=== PATIENT | male | born 1965 | race Caucasian/White ===

== ENCOUNTER 2024-05-20 13:38 | Inpatient (IN) ==
[2024-05-20] MEDS: SODIUM CHLORIDE 0.9% 500 ML IV STA (14:02)
[2024-05-20] MEDS: ONDANSETRON INJ 2 MG/ML 2 ML VIAL IV STA (14:02)
[2024-05-20 14:21] LABS: Basophils # (auto) 0.03 K/uL (0.00-0.20); Basophils % (auto) 0.2 %; Eosinophils # (auto) 0.12 K/uL (0.00-0.50); Eosinophils % (auto) 0.9 %; Hematocrit (blood only) 42.3 % (42.0-52.0); Hemoglobin 15.4 g/dl (14.0-18.0); Immature Granulocytes # (auto) 0.05 K/uL (0.01-0.20); Immature Granulocytes % (auto) 0.4 %; Lymphocytes # (auto) 1.27 K/uL (1.20-3.40); Lymphocytes % (auto) 9.2 %; Mean Corpuscular Hgb Conc 36.4 g/dL (32.0-36.0); Mean Corpuscular Volume 87.9 fL (80.0-100.0); Mean Platelet Volume 9.6 fL (9.4-12.4); Monocytes # (auto) 0.92 K/uL (0.11-0.59); Monocytes % (auto) 6.6 %; Neutrophils # (auto) 11.45 K/uL (1.40-6.50); Neutrophils % (auto) 82.7 %; Platelet Count 282 K/uL (130-400); RDW Coefficient of Variation 12.7 % (11.5-14.5); RDW Standard Deviation 40.6 fL (36.4-46.3); Red Blood Count 4.81 M/uL (4.70-6.10); White Blood Count 13.84 K/ul (4.8-10.8)
--- NOTE | 2024-05-20 14:27 | History & Physical Report ---
Date of Service May 20, 2024 Assessment & Plan (1) Cholecystitis: (2) Epigastric abdominal pain: (3) Non-alcoholic fatty liver disease: (4) GERD (gastroesophageal reflux disease): (5) Elevated liver enzymes: (6) Hypertension: (7) Dyslipidemia: Plan: Acute cholecystitis Abdominal pain SIRS with tachycardia -Admit to [facility] tele -General april has already seen the patient earlier this morning but the patient refused at that point in time to be admitted, stated that he did not want to have surgical procedure today. Upon return to the ER he is agreeable to surgery and is scheduled to go to the OR tomorrow with GEN chen, Dr. Perry -N.p.o. except sips and chips -Continue LR at 125 x 2 more bags -WBC of 13 K increased from 9 even this morning, follow response -Follow blood cultures, continue IV Zosyn, pt had taken 1 dose of Augmentin earlier today. -Pain control with Tylenol, was given Toradol, will add on low-dose Dilaudid for him. HTN HLD - Continue home meds including lisinopril, losartan -Will add on IV labetalol as needed with parameters TORIBIO - Chronic stable, LFTs are not elevated today, Tbili 1.0 Emphysema RICHELLE on CPAP hx of tobacco smoking - quit 20 years ago - Continue combivent, CPAP HS - Will need to reschedule appt with obed as outpatient DVT ppx: teds, scds, no chemical anticoagulation in the setting of surgical procedure Lines: 2 PIV FEN/GI: N.p.o., LR at 125 CODE: Full code Dispo: From home, likely to remain in the hospital x 1-2 days A total of 78 minutes were spent with greater than 50% of that time face to face with the patient, personally reviewing all current laboratories, imaging studies, past medication reconciliation, outpatient chart review, and discussion with specialists to collaborate care for the patient with attending. Please see attending documentation for corrections and/or additions. History of Present Illness Chief Complaint: Abdominal pain Primary Care Provider: Frankie Ayala Patient is a 58 year old male with PMHx of Nonalcoholic fatty liver disease, lumbar radiculopathy, GERD, obesity, elevated LFTs, emphysema who initially presented to the ER this morning, was told that he had acute cholecystitis, and with pain medication on board felt improved and refused to stay. He is back to the ER within 2 hours with c/o N/V, abdominal pain that began early this AM around 0200. Patient described the pain as sharp, and intense he thought he had food poisoning as he went out to dinner yesterday evening and ate a steak, mashed potatoes and green beans. He denies diarrhea, fever, chills, SOB, CP, and no prior abdominal surgeries. Pt tried to eat again this morning but had worsening abdominal pain, nausea and vomited. Denies any blood in emesis. He states that he is scheduled to have a stress test tomorrow at [facility] for a new diagnosis of emphysema on prior ct that also showed mild coronary calcification. Ct scan was obtained and is reading acute cholecystitis with cholelithiasis and small stones in the cystic duct. Report does not read obstructing stone in cystic duct or in the CBD. General surgery has seen the pt earlier this morning. Pt has taken morning meds today. He vomited, so is unsure if they absorbed. Family Hx: Reports he cannot take succinylcholine with anesthesia because his brother had a bad reaction/anaphylaxis and was told not to take it. Social Hx: quit smoking tobacco 20 years ago, drinks 2-3 beers per week on weekend. No ilicit drug use. Surgical Hx: Arthroscopic surgery knees bilaterally, MCL repair Allergies Allergy/AdvReac Type Severity Reaction Status Date / Time lisinopril Allergy Cough Verified 05/20/24 15:28 succinylcholine AdvReac It caused Verified 05/20/24 15:32 his brother to stop breathing Home Medications Medication Instructions Recorded Confirmed Type atorvastatin 20 mg tablet 20 mg PO DAILY 09/22/21 05/20/24 History losartan 25 mg tablet 25 mg PO DAILY 09/22/21 05/20/24 History duloxetine 60 mg capsule,delayed 60 mg PO DAILY 10/01/21 05/20/24 History release (Cymbalta) esomeprazole magnesium 40 mg 40 mg PO DAILY 03/05/22 05/20/24 History capsule,delayed release (Nexium) lidocaine 5 % topical patch 1 patch topical DAILY PRN Pain 08/17/22 05/20/24 History hydrocodone 7.5 mg-acetaminophen 1 tab PO BID PRN Severe Pain 09/30/23 05/20/24 History 325 mg tablet (Scale Score 7-10) acetaminophen 500 mg tablet 1,000 mg PO TID PRN Pain 05/20/24 05/20/24 History (Tylenol Extra Strength) amoxicillin 875 mg-potassium 1 tab PO Q12H 10 days #20 tabs 05/20/24 05/20/24 Rx clavulanate 125 mg tablet ipratropium 20 mcg-albuterol 100 1 puff inhalation BID 05/20/24 05/20/24 History mcg/actuation mist for inhalation (Combivent Respimat) tamsulosin 0.4 mg capsule 0.4 mg PO DAILY 05/20/24 05/20/24 History Past Med/Surg History Problem List (Updated 05/20/24 @ 15:06 by Arden Ellis MD) Acute cholecystitis (Acute) Epigastric abdominal pain (Acute) Abdominal pain (Acute) Cholecystitis (Acute) Sacroiliitis Lumbar facet joint syndrome Lumbar radiculopathy Cervical spine pain Bilateral elbow joint pain Non-alcoholic fatty liver disease GERD (gastroesophageal reflux disease) Calculus of gallbladder Elevated liver enzymes Diaphoresis Dyspnea on exertion Dyslipidemia Hypertension Sensorineural hearing loss of both ears Medical History Sleep apnea Fatty liver Chronic pain Anxiety Left ankle pain DJD (degenerative joint disease) Surgical History S/P MCL repair Family History Grandfather (Maternal) Stroke Hypertension Mother Diabetes Hypertension Grandfather (Paternal) Hypertension Grandmother (Maternal) Hypertension Grandmother (Paternal) Hypertension Father Hypertension Denies family history of Heart disease Cancer Social History Smoking Status: Former smoker Tobacco Type: Cigarettes Hx Alcohol Use: Yes Alcohol type: beer Alcohol Intake Frequency: 2-3 x/Week Preferred Language: Zimbabwean Completion Engineer Required: No Beliefs That Will Affect Care: None marital status: marital status details: [employer] current occupational status: employed Feels Safe at Home: Yes Review of Systems Review of Systems: Constitutional: No fever, sweats or chills Eyes: No diplopia, no worsening or blurred vision ENT: normal hearing, no trouble swallowing Respiratory: No cough, sputum, dyspnea at rest or on exertion Cardiovascular: No chest pain, tightness or palpitations Abdomen: + Pain in RUQ, + nausea, +vomiting, no diarrhea or constipation Musculoskeletal: No joint pain, calf pain, swelling Neurologic: No weakness, numbness/tingling, or balance problems Psychiatric: No anxiety or depression Skin: No rash or itch Physical Exam Physical Exam: General: awake, alert, no apparent distress Head: Normocephalic, atraumatic ENT: PERRL, EOMI, no pharyngeal exudate, mucous membranes moist Chest: Clear to auscultation, on room air, no adventitious breath sounds Cardiac: Regular rate and rhythm, no murmur, no JVD, normal peripheral pulses, good capillary refill Abdominal: NABS x 4 quadrants, soft, nondistended, + tenderness in RUQ, no rebound or guarding Extremities: Normal inspection, no peripheral edema or erythema, calfs nontender to palpation Psych: Normal mood and affect Neuro: AAO x 3, strength intact bilaterally and rated 5/5, no motor deficits, speech is clear, no peripheral sensory deficits Results & Data Results & Data Vital Signs (Past 12 Hours) Vital Signs Temp Pulse Resp BP Pulse Ox O2 Del Method 05/20/24 13:43 36.4 C L 91 H 19 185/91 H 100 Room Air Laboratory Results 05/20/24 14:07 WBC 13.84 H RBC 4.81 Hgb 15.4 Hct 42.3 MCV 87.9 MCH 32.0 MCHC 36.4 H RDW Std Deviation 40.6 RDW Coeff of Isidra 12.7 Plt Count 282 MPV 9.6 Immature Gran % (Auto) 0.4 Neut % (Auto) 82.7 Lymph % (Auto) 9.2 [place] % (Auto) 6.6 Eos % (Auto) 0.9 Baso % (Auto) 0.2 Neut # (Auto) 11.45 H Lymph # (Auto) 1.27 [place] # (Auto) 0.92 H Eos # (Auto) 0.12 Baso # (Auto) 0.03 Immature Gran # (Auto) 0.05 Code Status & VTE Plan Code Status Full code - discussed with pt at bedside Supervising Physician Co-Signing Physician Notes I have seen and discussed the case with the collaborating advanced practitioner. I agree with the above H&P. I have reviewed and confirmed the patients medical history, the findings on physical examination, and the patients diagnosis and treatment plan with Charlie AVINA and agree with the information documented. In short, Mr. Colon is a 58 year old gentleman with history of Nonalcoholic fatty liver disease, lumbar radiculopathy, GERD, obesity, elevated LFTs, emphysema who is admitted for acute cholecystitis. GENERAL APPEARANCE: AxOx4,uncomfortable gentleman. HEENT: NC, AT. MMM. EOMI, clear conjunctiva, oropharynx clear. NECK: Supple without lymphadenopathy. No stiffness or restricted ROM. HEART: Normal rate and regular rhythm, normal S1/S1, no m/r/g LUNGS: CTAB, moving air well. No crackles or wheezes are heard. ABDOMEN: tenderness noted in RUQ/epigastrium EXTREMITIES: Without cyanosis, clubbing or edema. NEUROLOGICAL: Grossly nonfocal. Alert and oriented, moving all 4 extremities. CN not formally tested but appear grossly intact. Skin: Warm and dry without any rash. : #Acute cholecystitis -pain management trend LFTS Zosyn Surgery on consult NPO midnight RCRI 1 for intraperitoneal procedure -No hx of ASCVD, CHF, AMI/ICM, elevated Cr, or insulin use rest of plan as above I spent a total of 35 minutes coordinating, documenting, and providing care for this patient excluding time spent in the performance of separately billed services. All of the aforementioned completed outside of collaborating with the assigned advanced practitioner for a full treatment plan. I have reviewed the advanced practitioner's documentation, and I agree with, and take responsibility for the plan of care
[2024-05-20 14:36] LABS: Albumin Globulin Ratio 1.8 (0.9-2); Albumin Level 4.3 gm/dl (3.4-5.0); BUN Creatinine Ratio 13.6 (10-20); Calcium 9.2 mg/dl (8.6-10.3); Creatinine Clr Calc Pharmacy 98.3 ml/min; Est GFR (African American) 91.7 ml/min; Est GFR (Non-African American) 79.1 ml/min; Globulin 2.4 gm/dl (2.5-4.0); Potassium 3.6 mmol/L (3.5-5.1); Total Protein 6.7 gm/dl (6.0-8.3)
[2024-05-20] MEDS ORDERED: LABETALOL HCL IV 5 MG/ML 20ML IV PRN (14:39)
[2024-05-20] MEDS ORDERED: HYDROmorphone INJ 0.5 MG/0.5 ML SYR IV PRN (14:39)
--- NOTE | 2024-05-20 14:40 | Communication Note ---
Date of Service: May 20, 2024 Contacted by ER physician, patient represented to ER with c/o ongoing N/V. Repeat labs show elevation in WBC Recommending admit to medicine NPO at [place] IV Fluids for hydration IV antiemetic PRN IV antibiotics IV analgesic PRN Patient will be added to the OR schedule tomorrow for a Robotic / Laparoscopic Cholecystectomy with On-call surgeon Dr. Perry timing of procedure is pending OR availability.
--- NOTE | 2024-05-20 15:06 | Emergency Department Note ---
Impression & Plan Acute cholecystitis ED Provider Note NAME: RANCHO DOMINGUEZ AGE: 58 SEX: M : 1965 ARRIVES VIA: Walk-In INFORMANT: Patient, ED PROVIDER(S): Arden Ellis MD CHIEF COMPLAINT: Acute cholecystitis HPI: This is a 58-year-old male seen a few hours ago for acute cholecystitis. Patient had workup done by myself earlier this morning with CT imaging of acute cholecystitis. Patient had pain relief after Toradol and requested to be discharged home instead of being admitted for cholecystectomy. He is eval by surgery later he notes that since he left he is unable to eat and has persistent nausea vomiting and right upper quadrant abdominal pain now. ROS: See above HPI for pertinent positives & negatives. A total of 10 systems reviewed and were otherwise negative. PHYSICAL EXAMINATION: General: resting comfortably in no acute distress Head: Normocephalic and atraumatic Eyes: Normal inspection, extraocular muscles intact Ear, nose, throat: Normal external exam Neck: Normal range of motion Respiratory: lungs clear to auscultation bilaterally Cardiovascular: Regular rate/rhythm, no murmur GI: Positive Iqbal sign, no rebound, guarding Extremities: nontender, moves all extremities Neuro: The patient awake and alert, appropriately conversive, no focal deficits, symmetric faces Skin: Warm, dry, and intact MEDICAL DECISION MAKING: This is a 58-year-old male presenting for acute cholecystitis. Patient had extensive workup this morning including blood work, imaging which shows acute cholecystitis. His exam is still consistent with acute cholecystitis. -Repeat blood work reveals now increasing white count. -Otherwise LFT/lipase within normal limits -Will admit to the hospital service, discussed with ZUNILDA Connolly for admission Differential diagnosis: Acute cholecystitis, pancreatitis, hepatitis Past Med/Surg History Problem List (Updated 05/20/24 @ 15:06 by Arden Elils MD) Acute cholecystitis (Acute) Epigastric abdominal pain (Acute) Abdominal pain (Acute) Cholecystitis (Acute) Sacroiliitis Lumbar facet joint syndrome Lumbar radiculopathy Cervical spine pain Bilateral elbow joint pain Non-alcoholic fatty liver disease GERD (gastroesophageal reflux disease) Calculus of gallbladder Elevated liver enzymes Diaphoresis Dyspnea on exertion Dyslipidemia Hypertension Sensorineural hearing loss of both ears Medical History Sleep apnea Fatty liver Chronic pain Anxiety Left ankle pain DJD (degenerative joint disease) Surgical History S/P MCL repair Family History Grandfather (Maternal) Stroke Hypertension Mother Diabetes Hypertension Grandfather (Paternal) Hypertension Grandmother (Maternal) Hypertension Grandmother (Paternal) Hypertension Father Hypertension Denies family history of Heart disease Cancer Social History Smoking Status: Former smoker Tobacco Type: Cigarettes Hx Alcohol Use: Yes Alcohol type: beer Alcohol Intake Frequency: 2-3 x/Week Preferred Language: Montserratian Care Support Representative Required: No Beliefs That Will Affect Care: None marital status: marital status details: [employer] current occupational status: employed Feels Safe at Home: Yes Allergies Allergies Allergy/AdvReac Type Severity Reaction Status Date / Time lisinopril Allergy Cough Verified 03/09/24 10:10 Home Meds Home Medications Medication Instructions Recorded Confirmed atorvastatin 20 mg tablet 20 mg PO DAILY 09/22/21 05/20/24 cetirizine 10 mg tablet (Zyrtec) 10 mg PO DAILY 09/22/21 03/09/24 losartan 25 mg tablet 25 mg PO DAILY 09/22/21 05/20/24 duloxetine 60 mg capsule,delayed 60 mg PO DAILY 10/01/21 05/20/24 release (Cymbalta) esomeprazole magnesium 40 mg 40 mg PO DAILY 03/05/22 05/20/24 capsule,delayed release (Nexium) lidocaine 5 % topical patch 1 patch topical DAILY 08/17/22 03/09/24 hydrocodone 7.5 mg-acetaminophen 1 tab PO BID PRN Severe Pain 09/30/23 05/20/24 325 mg tablet (Scale Score 7-10) ipratropium 20 mcg-albuterol 100 1 puff inhalation BID 05/20/24 05/20/24 mcg/actuation mist for inhalation (Combivent Respimat) tamsulosin 0.4 mg capsule 0.4 mg PO DAILY 05/20/24 05/20/24 Previous Rx's Medication Instructions Recorded amoxicillin 875 mg-potassium 1 tab PO Q12H 10 days #20 tabs 05/20/24 clavulanate 125 mg tablet Results & Data (ED) Vital Signs Vital Signs - 24 hr 05/20/24 13:43 Temperature 36.4 C L Temperature Source Temporal Artery Scan Pulse Rate 91 H Respiratory Rate 19 Blood Pressure 185/91 H Blood Pressure Mean 122 Pulse Oximetry 100 Oxygen Delivery Method Room Air Sepsis Recent Fever Within 48 Hours No Sepsis New/Unexplained Change in Mental Status N/A Sepsis Action Taken by Nursing No Action Required Laboratory Data 05/20/24 14:07 05/20/24 14:07 Lab Results 05/20/24 Range/Units 14:07 WBC 13.84 H (4.8-10.8) K/ul RBC 4.81 (4.70-6.10) M/uL Hgb 15.4 (14.0-18.0) g/dl Hct 42.3 (42.0-52.0) % MCV 87.9 (80.0-100.0) fL MCH 32.0 (25.0-34.0) pg MCHC 36.4 H (32.0-36.0) g/dL RDW Std Deviation 40.6 (36.4-46.3) fL RDW Coeff of Isidra 12.7 (11.5-14.5) % Plt Count 282 (130-400) K/uL MPV 9.6 (9.4-12.4) fL Immature Gran % (Auto) 0.4 % Neut % (Auto) 82.7 % Lymph % (Auto) 9.2 % [place] % (Auto) 6.6 % Eos % (Auto) 0.9 % Baso % (Auto) 0.2 % Neut # (Auto) 11.45 H (1.40-6.50) K/uL Lymph # (Auto) 1.27 (1.20-3.40) K/uL [place] # (Auto) 0.92 H (0.11-0.59) K/uL Eos # (Auto) 0.12 (0.00-0.50) K/uL Baso # (Auto) 0.03 (0.00-0.20) K/uL Immature Gran # (Auto) 0.05 (0.01-0.20) K/uL Sodium 137 (136-145) mmol/L Potassium 3.6 (3.5-5.1) mmol/L Chloride 104 (98-107) mmol/L Carbon Dioxide 27 (21-32) mmol/L Anion Gap 6 (3-11) BUN 14 (6-23) mg/dl Creatinine 1.03 (0.6-1.4) mg/dl Est Cr Clr Drug Dosing 98.3 ml/min Est GFR ( Amer) 91.7 ml/min Est GFR (Non-Af Amer) 79.1 ml/min BUN/Creatinine Ratio 13.6 (10-20) Glucose 144 H (70-99(Fasting)) mg/dl Calcium 9.2 (8.6-10.3) mg/dl Total Bilirubin 1.0 (0.2-1.0) mg/dl AST 28 (13-39) U/L ALT 47 (7-52) U/L Alkaline Phosphatase 61 (34-104) U/L Total Protein 6.7 (6.0-8.3) gm/dl Albumin 4.3 (3.4-5.0) gm/dl Globulin 2.4 L (2.5-4.0) gm/dl Albumin/Globulin Ratio 1.8 (0.9-2) Lipase 27 (11-82) U/L Administered Medications Discontinued Medications Sodium Chloride (Nss) 500 mls @ 999 mls/hr IV .Q31M STA Stop: 05/20/24 14:15 Last Admin: 05/20/24 14:02 Dose: 999 mls/hr Documented By: LIANA Ondansetron HCl (Ondansetron Inj 2 Mg/Ml 2 Ml Vial) 4 mg IV NOW STA Stop: 05/20/24 13:46 Last Admin: 05/20/24 14:02 Dose: 4 mg Documented By: LIANA Discharge Plan Visit Data Chief Complaint: Vomiting Stated Complaint: VOMITING, DIZZY ED Provider: Arden Ellis Discharge Problem: Acute cholecystitis Forms Stand Alone Forms: My [facility] Prescriptions Prescriptions: No Action hydrocodone-acetaminophen 7.5-325 mg tablet 1 tab PO BID PRN (Reason: Severe Pain (Scale Score 7-10)) lidocaine 5 % adhesive patch,medicated 1 patch topical DAILY Rx Instructions: leave on most painful area for up to 12 hrs esomeprazole magnesium [Nexium] 40 mg capsule,delayed release(DR/EC) 40 mg PO DAILY losartan 25 mg tablet 25 mg PO DAILY atorvastatin 20 mg tablet 20 mg PO DAILY cetirizine [Zyrtec] 10 mg tablet 10 mg PO DAILY duloxetine [Cymbalta] 60 mg capsule,delayed release(DR/EC) 60 mg PO DAILY amoxicillin-pot clavulanate 875-125 mg tablet 1 tab PO Q12H 10 Days Qty: 20 0RF tamsulosin 0.4 mg capsule 0.4 mg PO DAILY Combivent Respimat 20-100 mcg/actuation mist 1 puff INHALATION BID Referrals Referrals: Frankie Ayala CRNP [Primary Care Provider] -
[2024-05-20] MEDS: KETOROLAC TROMETHAMINE 15 MG/ML VIAL IV ONE (15:26)
[2024-05-20] MEDS: PIPER/TAZO 4.5g in D5W MINI-B 100 ML IV ONE (15:27)
[2024-05-20] MEDS ORDERED: ONDANSETRON INJ 2 MG/ML 2 ML VIAL IV PRN (17:27)
[2024-05-20] MEDS: LACTATED RINGER'S 1,000 ML IV SCH (17:44)
[2024-05-20] MEDS: HYDROCODONE/ACETAMINOPHEN 7.5/325MG TAB PO PRN (18:06)
[2024-05-20] MEDS: LIDOCAINE 5% 1 PATCH TD SCH (18:17)
[2024-05-20] MEDS: PIPERACILLIN/TAZOBACTAM 4.5 GM in DEXTROSE 5% MINI-B 100 ML IV SCH (20:54)
[2024-05-20] MEDS ORDERED: IPRATROPIUM BROMIDE/ALBUTEROL respimat INH INH SCH (21:00)
[2024-05-20] MEDS: Ipratropium HFA Inhaler (Combivent Respimat P&T Subs) INH SCH (23:06)
[2024-05-20] MEDS: Albuterol HFA 8 GM Inhaler (Combivent Respimat P&T Subs) INH SCH (23:07)
[2024-05-20] MEDS: ACETAMINOPHEN 325 MG TAB PO PRN (23:21)
[2024-05-20 23:44] LABS: Appearance Urine Clear (Clear); Bilirubin Urine Negative (Negative); Blood Urine Negative (Negative); Color Urine Yellow; Glucose Urine UA Negative (Negative); Ketones Urine Negative (Negative); Leukocyte Esterase Urine Negative (Negative); Nitrite Urine Negative (Negative); Protein Urine Negative (Negative); Specific Gravity Urine 1.025 (1.000-1.030); Urobilinogen Urine Negative (Negative); pH Urine 6.5 (4.5-7.5)
[2024-05-21 07:38] LABS: Estimated Average Glucose 134 mg/dl; Hemoglobin A1C 6.3 % (4.5-5.6)
[2024-05-21 07:56] LABS: Albumin Globulin Ratio 1.8 (0.9-2); Albumin Level 3.7 gm/dl (3.4-5.0); BUN Creatinine Ratio 10.5 (10-20); Bilirubin,Total 3.1 mg/dl (0.2-1.0); Calcium 8.5 mg/dl (8.6-10.3); Chol HDL Ratio 2.4 (0-5); Creatinine Clr Calc Pharmacy 76.3 ml/min; Est GFR (African American) 67.3 ml/min; Est GFR (Non-African American) 58.1 ml/min; Globulin 2.1 gm/dl (2.5-4.0); Hematocrit (blood only) 39.9 % (42.0-52.0); Hemoglobin 13.9 g/dl (14.0-18.0); Mean Corpuscular Hemoglobin 31.7 pg (25.0-34.0); Mean Corpuscular Hgb Conc 34.8 g/dL (32.0-36.0); Mean Corpuscular Volume 91.1 fL (80.0-100.0); Mean Platelet Volume 9.6 fL (9.4-12.4); Platelet Count 228 K/uL (130-400); Potassium 3.6 mmol/L (3.5-5.1); RDW Coefficient of Variation 12.8 % (11.5-14.5); RDW Standard Deviation 42.4 fL (36.4-46.3); Red Blood Count 4.38 M/uL (4.70-6.10); Total Protein 5.8 gm/dl (6.0-8.3)
--- NOTE | 2024-05-21 07:57 | Ultrasound Report ---
ULTRASOUND RIGHT UPPER QUADRANT ABDOMEN CLINICAL HISTORY: Acute cholecystitis. COMPARISON STUDY: Abdominal CT dated 05/20/2024 TECHNIQUE: Real-time, grayscale, and color flow sonography of the right upper quadrant of the abdomen was performed. Images are reviewed in the transverse and longitudinal planes. FINDINGS: Liver: The liver is top normal in size and demonstrates heterogeneously increased echotexture indicat ing steatosis. There is no intrahepatic biliary ductal dilatation. The main portal vein is patent. Gallbladder: The gallbladder is distended and filled with gallstones and sludge. The gallbladder wall is mildly thickened measuring up to 4 mm. There is trace pericholecystic fluid. A sonographic Iqbal 's sign is reportedly present. The common bile duct measures up to 0.5 cm in diameter. Pancreas: Not visualized due to overlying bowel gas. Right kidney: Survey images of the right kidney demonstrate normal size and echotexture. There is no hydronephrosis. Ascites: None. IMPRESSION: 1. Cholelithiasis with acute cholecystitis. 2. There is no intra or extrahepatic biliary ductal dilatation. 3. Hepatic steatosis. ACT 112: Negative or not required by law. Electronically signed by: Pablo Yoo M.D. 05/21/2024 7:55 AM
--- NOTE | 2024-05-21 09:19 | Anesthesiology Consultation ---
Date of Service May 21, 2024 Assessment & Plan Chart Review Chart Review: Acceptable Risk for Surgery and Patient NOT seen in Pre Admission Testing Consults Requested none ASA ASA3 Proposed Anesthesia Anesthesia Type: General History Surgery Operation Date: 05/21/24 07:00 Proposed Procedures p Robotic Laparoscopic Cholecystectomy - Rashid Perry DO, FACS Height/Weight Height: 6 ft Weight: 109 kg Allergies Allergy/AdvReac Type Severity Reaction Status Date / Time lisinopril Allergy Cough Verified 05/20/24 15:28 succinylcholine AdvReac It caused Verified 05/20/24 15:32 his brother to stop breathing Medications Home Medications Medication Instructions Recorded Confirmed Last Taken atorvastatin 20 mg tablet 20 mg PO DAILY 09/22/21 05/20/24 05/20/24 losartan 25 mg tablet 25 mg PO DAILY 09/22/21 05/20/24 05/20/24 duloxetine 60 mg capsule,delayed 60 mg PO DAILY 10/01/21 05/20/24 05/20/24 release (Cymbalta) esomeprazole magnesium 40 mg 40 mg PO DAILY 03/05/22 05/20/24 05/20/24 capsule,delayed release (Nexium) lidocaine 5 % topical patch 1 patch topical DAILY PRN Pain 08/17/22 05/20/24 Unknown hydrocodone 7.5 mg-acetaminophen 1 tab PO BID PRN Severe Pain 09/30/23 05/20/24 05/20/24 325 mg tablet (Scale Score 7-10) acetaminophen 500 mg tablet 1,000 mg PO TID PRN Pain 05/20/24 05/20/24 Unknown (Tylenol Extra Strength) amoxicillin 875 mg-potassium 1 tab PO Q12H 10 days #20 tabs 05/20/24 05/20/24 05/20/24 clavulanate 125 mg tablet ipratropium 20 mcg-albuterol 100 1 puff inhalation BID 05/20/24 05/20/24 05/20/24 mcg/actuation mist for inhalation (Combivent Respimat) tamsulosin 0.4 mg capsule 0.4 mg PO DAILY 05/20/24 05/20/24 05/20/24 Active Medications Generic Name Dose Route Start Last Admin Trade Name Freq PRN Reason Stop Dose Admin Acetaminophen 650 mg 05/20/24 17:27 05/21/24 07:08 Acetaminophen 325 Mg Tab PO 06/19/24 17:26 650 mg Q4H PRN Administration Moderate Pain (Scale 4, 5, 6) Hydrocodone Bitart/Acetaminophen 1 tab 05/20/24 17:27 05/20/24 18:06 Hydrocodone/Acetaminophen 7.5/325mg Tab PO 06/03/24 17:26 1 tab BID PRN Administration Severe Pain (Scale Score 7-10) Albuterol 1 puffs 05/20/24 19:00 05/21/24 07:30 Albuterol Hfa 8 Gm Inhaler (Combivent Respimat P&T Subs) INH 06/19/24 18:59 1 puffs BIDR LAURA Administration Protocol Piperacillin Sod/Tazobactam 100 mls @ 25 mls/hr 05/20/24 20:00 05/21/24 03:56 Sod 4.5 gm/ Dextrose IV 05/30/24 19:59 25 mls/hr Q8H LAURA Administration Protocol Lactated Ringer's 1,000 mls @ 125 mls/hr 05/20/24 17:27 05/21/24 03:56 Lr IV 05/21/24 09:26 125 mls/hr .Q8H LAURA Administration Ipratropium [place] 1 puffs 05/20/24 19:00 05/21/24 07:30 Ipratropium Hfa Inhaler (Combivent Respimat P&T Subs) INH 06/19/24 18:59 1 puffs BIDR LAURA Administration Protocol Lidocaine 1 patch 05/20/24 17:27 05/20/24 18:17 Lidocaine 5% 1 Patch TD 06/19/24 17:26 1 patch DAILY LAURA Administration Miscellaneous 1 each 05/20/24 21:00 05/20/24 20:54 Remove Lidoderm Patch N/A 06/19/24 20:59 1 each DAILY@2100 LAURA Administration Past Medical History Medical History Sleep apnea Fatty liver Chronic pain Anxiety Left ankle pain DJD (degenerative joint disease) obese Gerd ASCVD aorta increased LFT's small H/H coronary artery calcifications HERRERA Exercise / Class Metabolic Activity II 4-5 Yardwork/Stairs/Walk up hill Past Family History Family History Grandfather (Maternal) Stroke Hypertension Mother Diabetes Hypertension Grandfather (Paternal) Hypertension Grandmother (Maternal) Hypertension Grandmother (Paternal) Hypertension Father Hypertension Denies family history of Heart disease Cancer Past Surgical History Surgical History S/P MCL repair Past Anesthesia History No Hx of Anesthesia Complications and No Family Hx of Anesthesia Complications History of PONV No Hx of PONV and No Hx of Motion Sickness Social History Smoking Status: Former smoker Do You Dip or Chew Tobacco: No Hx Alcohol Use: No Alcohol type: beer Hx Substance Use: No substance use type: does not use Physical Exam Vital Signs Last Vital Signs Temp 36.7 C 05/21/24 07:45 Pulse 85 05/21/24 07:45 Resp 18 05/21/24 07:45 BP 115/77 05/21/24 07:45 Pulse Ox 97 05/21/24 07:45 O2 Del Method Room Air 05/21/24 07:45 FiO2 21 05/21/24 07:33 Testing Laboratory Results 05/21/24 07:01 05/21/24 07:01 Hemoglobin A1c 6.3 % (4.5-5.6) H 05/21/24 07:01 Urine Color Yellow 05/20/24 23:30 Urine Appearance Clear (Clear) 05/20/24 23:30 Urine pH 6.5 (4.5-7.5) 05/20/24 23:30 Ur Specific [place] 1.025 (1.000-1.030) 05/20/24 23:30 Urine Protein Negative (Negative) 05/20/24 23:30 Urine Glucose (UA) Negative (Negative) 05/20/24 23:30 Urine Ketones Negative (Negative) 05/20/24 23:30 Urine Nitrite Negative (Negative) 05/20/24 23:30 Ur Leukocyte Esterase Negative (Negative) 05/20/24 23:30 Electrocardiogram Date: 05/20/24 Findings: + NSR @ (@ 68) Chest X-Ray Date: 10/01/21 Findings: + NAD
[2024-05-21] MEDS: HYDROmorphone INJ 1 MG/ML SYRINGE IV STA (09:24)
[2024-05-21 09:51] LABS: Bilirubin Direct 0.5 mg/dl (0-0.2)
--- NOTE | 2024-05-21 09:52 | Hospitalist Progress Note ---
Date of Service May 21, 2024 Assessment & Plan (1) Cholecystitis: (2) Epigastric abdominal pain: (3) Non-alcoholic fatty liver disease: (4) GERD (gastroesophageal reflux disease): (5) Elevated liver enzymes: (6) Hypertension: (7) Dyslipidemia: Plan: Mr. Colon is a 58 year old gentleman with history of Nonalcoholic fatty liver disease, lumbar radiculopathy, GERD, obesity, elevated LFTs, emphysema who is admitted for acute cholecystitis. Pending OR for lap bianca today. #Acute cholecystitis #SIRS with tachycardia -N.p.o. except sips and chips -Continue LR @125 until procedure -Continue Zosyn -Continue antiemetics and pain regimen -Appreciate Gen Surg recommendations, CTM #HTN #HLD - Hold including ;osartan -Will add on IV labetalol as needed with parameters #Elevated T Bili #TORIBIO - Chronic stable, LFTs are not elevated today, Tbili 1.0 #Emphysema #RICHELLE on CPAP #hx of tobacco smoking - quit 20 years ago - Continue combivent, CPAP HS - Will need to reschedule appt with obed as outpatient DVT ppx: teds, scds, no chemical anticoagulation in the setting of surgical procedure Lines: 2 PIV FEN/GI: N.p.o., LR at 125 CODE: Full code Dispo contingent on recovery post-op Admission and Anticipated Discharge Date Admission Date: May 20, 2024 Subjective Reports continued abdominal pain Denies fevers or chills, but states pain is very positional, unable to get situated Physical Exam Constitutional: WD/WN, vitals as above Respiratory: normal respiratory effort, lungs clear to auscultation Cardiovascular: RRR, no murmur, no edema Gastrointestinal (Abdomen): notably tender abdomen, predominately epigastrium/RUQ Results & Data Results & Data Vital Signs (Past 12 Hours) Vital Signs Temp Pulse Pulse Resp BP Pulse Ox O2 Del Method 05/21/24 07:45 36.7 C 85 18 115/77 97 Room Air 05/21/24 07:33 84 12 97 Room Air 05/21/24 04:20 37.5 C 79 20 108/66 97 Room Air 05/20/24 23:59 37.7 C H 93 H 20 99/64 L 94 Room Air 05/20/24 23:34 37.7 C H 93 H 20 99/64 L 94 Room Air 05/20/24 23:09 88 16 94 Room Air 05/20/24 21:54 97 H FiO2 05/21/24 07:45 05/21/24 07:33 21 05/21/24 04:20 05/20/24 23:59 05/20/24 23:34 05/20/24 23:09 05/20/24 21:54 Laboratory Results Short CBC 05/20/24 05/21/24 Range/Units 14:07 07:01 WBC 13.84 H 14.00 H (4.8-10.8) K/ul Hgb 15.4 13.9 L (14.0-18.0) g/dl Hct 42.3 39.9 L (42.0-52.0) % Plt Count 282 228 (130-400) K/uL BMP 05/20/24 05/21/24 14:07 07:01 Sodium 137 138 Potassium 3.6 3.6 Chloride 104 103 Carbon Dioxide 27 30 BUN 14 14 Creatinine 1.03 1.33 D Glucose 144 H 152 H Calcium 9.2 8.5 L Liver Function 05/20/24 05/21/24 Range/Units 14:07 07:01 Total Bilirubin 1.0 3.1 H D (0.2-1.0) mg/dl AST 28 23 (13-39) U/L ALT 47 40 (7-52) U/L Alkaline Phosphatase 61 54 (34-104) U/L Albumin 4.3 3.7 (3.4-5.0) gm/dl Urine 05/20/24 Range/Units 23:30 Urine Color Yellow Urine Appearance Clear (Clear) Urine pH 6.5 (4.5-7.5) Ur Specific [place] 1.025 (1.000-1.030) Urine Protein Negative (Negative) Urine Glucose (UA) Negative (Negative) Medications Administered Home Medications Medication Instructions Recorded Confirmed Last Taken atorvastatin 20 mg tablet 20 mg PO DAILY 09/22/21 05/20/24 05/20/24 losartan 25 mg tablet 25 mg PO DAILY 09/22/21 05/20/24 05/20/24 duloxetine 60 mg capsule,delayed 60 mg PO DAILY 10/01/21 05/20/24 05/20/24 release (Cymbalta) esomeprazole magnesium 40 mg 40 mg PO DAILY 03/05/22 05/20/24 05/20/24 capsule,delayed release (Nexium) lidocaine 5 % topical patch 1 patch topical DAILY PRN Pain 08/17/22 05/20/24 Unknown hydrocodone 7.5 mg-acetaminophen 1 tab PO BID PRN Severe Pain 09/30/23 05/20/24 05/20/24 325 mg tablet (Scale Score 7-10) acetaminophen 500 mg tablet 1,000 mg PO TID PRN Pain 05/20/24 05/20/24 Unknown (Tylenol Extra Strength) amoxicillin 875 mg-potassium 1 tab PO Q12H 10 days #20 tabs 05/20/24 05/20/24 05/20/24 clavulanate 125 mg tablet ipratropium 20 mcg-albuterol 100 1 puff inhalation BID 05/20/24 05/20/24 05/20/24 mcg/actuation mist for inhalation (Combivent Respimat) tamsulosin 0.4 mg capsule 0.4 mg PO DAILY 05/20/24 05/20/24 05/20/24 Active Medications Generic Name Dose Route Start Last Admin Trade Name Freq PRN Reason Stop Dose Admin Acetaminophen 650 mg 05/20/24 17:27 05/21/24 07:08 Acetaminophen 325 Mg Tab PO 06/19/24 17:26 650 mg Q4H PRN Administration Moderate Pain (Scale 4, 5, 6) Hydrocodone Bitart/Acetaminophen 1 tab 05/20/24 17:27 05/20/24 18:06 Hydrocodone/Acetaminophen 7.5/325mg Tab PO 06/03/24 17:26 1 tab BID PRN Administration Severe Pain (Scale Score 7-10) Albuterol 1 puffs 05/20/24 19:00 05/21/24 07:30 Albuterol Hfa 8 Gm Inhaler (Combivent Respimat P&T Subs) INH 06/19/24 18:59 1 puffs BIDR LAURA Administration Protocol Piperacillin Sod/Tazobactam 100 mls @ 25 mls/hr 05/20/24 20:00 05/21/24 09:33 Sod 4.5 gm/ Dextrose IV 05/30/24 19:59 Infused Q8H LAURA Infusion Protocol Ipratropium [place] 1 puffs 05/20/24 19:00 05/21/24 07:30 Ipratropium Hfa Inhaler (Combivent Respimat P&T Subs) INH 06/19/24 18:59 1 puffs BIDR LAURA Administration Protocol Lidocaine 1 patch 05/20/24 17:27 05/20/24 18:17 Lidocaine 5% 1 Patch TD 06/19/24 17:26 1 patch DAILY LAURA Administration Miscellaneous 1 each 05/20/24 21:00 05/20/24 20:54 Remove Lidoderm Patch N/A 06/19/24 20:59 1 each DAILY@2100 LAURA Administration
[2024-05-21] MEDS: LACTATED RINGER'S 1,000 ML IV SCH ×2 (09:55→15:05)
[2024-05-21] MEDS ORDERED: fentaNYL citrate PF 100 MCG/2 ML VIAL IV PRN (10:15)
[2024-05-21] MEDS ORDERED: ATROPINE SULFATE 0.1 MG/ML 10ML SYR IV PRN (10:15)
[2024-05-21] MEDS ORDERED: PROMETHAZINE HCL 6.25 MG in SODIUM CHLORIDE 0.9% 50 ML IV PRN (10:15)
[2024-05-21] MEDS ORDERED: ONDANSETRON INJ 2 MG/ML 2 ML VIAL IV PRN (10:15)
[2024-05-21] MEDS ORDERED: HYDROmorphone INJ 1 MG/ML SYRINGE IV PRN (10:15)
[2024-05-21] MEDS ORDERED: ePHEDrine sulfate 50 MG/ML AMP IV PRN (10:15)
[2024-05-21] MEDS ORDERED: MIDAZOLAM HCL 1 MG/ML 2ML VIAL ONE (10:58)
[2024-05-21] MEDS ORDERED: fentaNYL citrate PF 100 MCG/2 ML VIAL ONE ×2 (10:58→12:03)
[2024-05-21] MEDS ORDERED: LIDOCAINE 2% 2 ML VIAL/AMP(20MG/ML) INFIL ONE (11:00)
[2024-05-21] MEDS ORDERED: ROCURONIUM BROMIDE 10 MG/ML 5 ML VIAL IV ONE ×2 (11:00→12:15)
[2024-05-21] MEDS ORDERED: DEXAMETHASONE SOD INJ 4 MG/ML VIAL ONE (11:00)
[2024-05-21] MEDS ORDERED: PROPOFOL IV EMULSION 10 MG/ML 20 ML VIAL IV ONE (11:00)
[2024-05-21] MEDS ORDERED: ONDANSETRON INJ 2 MG/ML 2 ML VIAL ONE (11:00)
[2024-05-21] MEDS: INDOCYANINE GREEN 25 MG VIAL INJ ONE (11:06)
--- NOTE | 2024-05-21 11:10 | Surgery Progress Note ---
Date of Service May 21, 2024 Assessment & Plan (1) Acute cholecystitis: Plan: Acute cholecystitis. T. bili 3.1, mostly unconjugated, other LFTs normal plan for robotic assisted laparoscopic cholecystectomy with possible cholangiogram risks discussed to include but not limited to bleeding, infection, retained stone, bile leak, open surgery, damage to surrounding structures including bile duct, need for future or more extensive surgery, failure to treat symptoms, and risks of anesthesia Repeat labs in a.m., likely discharge tomorrow Admission and Anticipated Discharge Date Admission Date: May 20, 2024 Subjective admitted with cholecystitis. Still with RUQ pain, controlled with meds. Physical Exam Constitutional: WD/WN, vitals as above + obese Respiratory: normal respiratory effort, lungs clear to auscultation Cardiovascular: RRR, no murmur, no edema Gastrointestinal (Abdomen): Percussion/Palpation: + abdomen tender and abdomen soft; no guarding, abdomen not rigid and no hepatosplenomegaly Results & Data Vital Signs (Past 12 Hours) Vital Signs Temp Pulse Pulse Resp BP Pulse Ox O2 Del Method 05/21/24 09:47 37.2 C 95 H 20 118/67 94 Room Air 05/21/24 08:00 85 05/21/24 07:45 36.7 C 85 18 115/77 97 Room Air 05/21/24 07:33 84 12 97 Room Air 05/21/24 04:20 37.5 C 79 20 108/66 97 Room Air 05/20/24 23:59 37.7 C H 93 H 20 99/64 L 94 Room Air 05/20/24 23:34 37.7 C H 93 H 20 99/64 L 94 Room Air 05/20/24 23:09 88 16 94 Room Air FiO2 05/21/24 09:47 05/21/24 08:00 05/21/24 07:45 05/21/24 07:33 21 05/21/24 04:20 05/20/24 23:59 05/20/24 23:34 05/20/24 23:09 Laboratory Results Laboratory Results - last 24 hr 05/20/24 05/20/24 05/21/24 14:07 23:30 07:01 WBC 13.84 H 14.00 H RBC 4.81 4.38 L Hgb 15.4 13.9 L Hct 42.3 39.9 L MCV 87.9 91.1 MCH 32.0 31.7 MCHC 36.4 H 34.8 RDW Std Deviation 40.6 42.4 RDW Coeff of [place] 12.7 12.8 Plt Count 282 228 MPV 9.6 9.6 Immature Gran % (Auto) 0.4 Neut % (Auto) 82.7 Lymph % (Auto) 9.2 [place] % (Auto) 6.6 Eos % (Auto) 0.9 Baso % (Auto) 0.2 Neut # (Auto) 11.45 H Lymph # (Auto) 1.27 [place] # (Auto) 0.92 H Eos # (Auto) 0.12 Baso # (Auto) 0.03 Immature Gran # (Auto) 0.05 Sodium 137 138 Potassium 3.6 3.6 Chloride 104 103 Carbon Dioxide 27 30 Anion Gap 6 5 BUN 14 14 Creatinine 1.03 1.33 D Est Cr Clr Drug Dosing 98.3 76.3 Est GFR ( Amer) 91.7 67.3 Est GFR (Non-Af Amer) 79.1 58.1 BUN/Creatinine Ratio 13.6 10.5 Glucose 144 H 152 H POC Glucose Estimat Average Glucose 134 Hemoglobin A1c 6.3 H Calcium 9.2 8.5 L Total Bilirubin 1.0 3.1 H D Direct Bilirubin 0.5 H AST 28 23 ALT 47 40 Alkaline Phosphatase 61 54 Total Protein 6.7 5.8 L Albumin 4.3 3.7 Globulin 2.4 L 2.1 L Albumin/Globulin Ratio 1.8 1.8 Triglycerides 66 Cholesterol 115 LDL Cholesterol, Calc 54 VLDL Cholesterol, Calc 13 HDL Cholesterol 48 Cholesterol/HDL Ratio 2.4 Lipase 27 Urine Color Yellow Urine Appearance Clear Urine pH 6.5 Ur Specific [place] 1.025 Urine Protein Negative Urine Glucose (UA) Negative Urine Ketones Negative Urine Blood Negative Urine Nitrite Negative Urine Bilirubin Negative Urine Urobilinogen Negative Ur Leukocyte Esterase Negative 05/21/24 09:49 WBC RBC Hgb Hct MCV MCH MCHC RDW Std Deviation RDW Coeff of [place] Plt Count MPV Immature Gran % (Auto) Neut % (Auto) Lymph % (Auto) [place] % (Auto) Eos % (Auto) Baso % (Auto) Neut # (Auto) Lymph # (Auto) [place] # (Auto) Eos # (Auto) Baso # (Auto) Immature Gran # (Auto) Sodium Potassium Chloride Carbon Dioxide Anion Gap BUN Creatinine Est Cr Clr Drug Dosing Est GFR ( Amer) Est GFR (Non-Af Amer) BUN/Creatinine Ratio Glucose POC Glucose 126 H Estimat Average Glucose Hemoglobin A1c Calcium Total Bilirubin Direct Bilirubin AST ALT Alkaline Phosphatase Total Protein Albumin Globulin Albumin/Globulin Ratio Triglycerides Cholesterol LDL Cholesterol, Calc VLDL Cholesterol, Calc HDL Cholesterol Cholesterol/HDL Ratio Lipase Urine Color Urine Appearance Urine pH Ur Specific [place] Urine Protein Urine Glucose (UA) Urine Ketones Urine Blood Urine Nitrite Urine Bilirubin Urine Urobilinogen Ur Leukocyte Esterase Diagnostic Findings Liver Ultrasound 05/20/24 16:30 ULTRASOUND RIGHT UPPER QUADRANT ABDOMEN CLINICAL HISTORY: Acute cholecystitis. COMPARISON STUDY: Abdominal CT dated 05/20/2024 TECHNIQUE: Real-time, grayscale, and color flow sonography of the right upper quadrant of the abdomen was performed. Images are reviewed in the transverse and longitudinal planes. FINDINGS: Liver: The liver is top normal in size and demonstrates heterogeneously increased echotexture indicating steatosis. There is no intrahepatic biliary ductal dilatation. The main portal vein is patent. Gallbladder: The gallbladder is distended and filled with gallstones and sludge. The gallbladder wall is mildly thickened measuring up to 4 mm. There is trace pericholecystic fluid. A sonographic Iqbal's sign is reportedly present. The common bile duct measures up to 0.5 cm in diameter. Pancreas: Not visualized due to overlying bowel gas. Right kidney: Survey images of the right kidney demonstrate normal size and echotexture. There is no hydronephrosis. Ascites: None. IMPRESSION: 1. Cholelithiasis with acute cholecystitis. 2. There is no intra or extrahepatic biliary ductal dilatation. 3. Hepatic steatosis. ACT 112: Negative or not required by law. Electronically signed by: Pablo Yoo M.D. 05/21/2024 7:55 AM PG Care Time/CCT Total # of Minutes Spent Total Time Spent with Patient: Total time spent is greater than 50% in coordination of care (as documented) at patient's floor/unit and/or counseling patient: Coding Level of Care Code 99248 SUB INP/OBS CARE 2/35MIN Diagnoses Acute cholecystitis K81.0
[2024-05-21] MEDS ORDERED: SUGAMMADEX SODIUM 200 MG/2 ML VIAL IV ONE (12:54)
[2024-05-21] MEDS: BUPIVACAINE 0.5 % 5 MG/1 ML MPF 30ML VIAL ONE (13:00)
--- NOTE | 2024-05-21 13:14 | Operative Report ---
PG Post Operative Report Pre & Post Diagnosis Operation Date: 05/21/24 07:00 Pre-Op diagnosis: Acute cholecystitis Postop diagnosis: Gangrenous cholecystitis I identified the patient and participated in the time-out.: Yes Procedure Operation Date: 05/21/24 07:00 Actual Procedures p Robotic Laparoscopic Cholecystectomy (Robotic if available), poss laparoscopic - Rashid Perry DO, WILEY Surgeon Rashid Perry DO, FACS [employer] Ad[employer]er Citlalli Quiroz Estimated Blood Loss 15 Findings Consistent with Post-Op Diagnosis Acute gangrenous cholecystitis with multiple small stones. Critical view of safety obtained, cystic duct and artery doubly clipped and divided. Posterior branch of the artery doubly clipped and divided. Spillage of stones, all of which were retrieved. Specimens Gallbladder Anesthesia Type General Complications none Disposition Accompanied Patient To Recovery: No Disposition: Recovery Room Indications 58-year-old male admitted with acute cholecystitis, plan for robotic cholecystectomy. The risks of the procedure were discussed, all questions were answered, and the patient agreed to proceed with surgery as planned. Description of Procedure The patient was properly identified, consented, and taken to the operating room where he was placed in the supine position. 2.5 mg of indocyanine green were administered IV approximately 45 min prior to the surgery. General endotracheal anesthesia was induced. SCDs and a safety belt were placed. Preoperative antib iotics were administered. The patient's abdomen was prepped and draped in the standard sterile fashion. A surgical timeout was performed and all parties were in agreement that this was the correct patient and procedure to be performed and we continued as planned. An incision was made just above the umbilicus and to the right of midline. Veress needle was inserted and saline drop test confirmed entry to the abdomen. The abdomen was insufflated with carbon dioxide which the patient tolerated incident. Veress needle was removed and the abdomen is entered using the Optiview technique and a 5 mm camera. The introducer was removed and the abdomen inspected. No damage from initial trocar placement or Veress needle placement was identified. There were no significant abnormalities to the 4 quadrants of the abdomen. 8 mm robotic ports were then placed on the left and right. An additional 5 mm instructional support assistant port was placed in the lateral right subcostal position. The patient was placed in reverse Trendelenburg position and rotated towards the left. The robot was then docked and the camera and robotic instruments were inserted. The gallbladder was significantly inflamed and gangrenous. The dome of the gallbladder was opened with cautery and suctioned to allow for retraction. The dome of the gallbladder was grasped by the instructional support assistant and retracted towards the left upper quadrant and the infundibulum was retracted toward the right lower quadrant revealing Calot's triangle. Peritoneal attachments were taken down with electrocautery and blunt dissection. The cystic duct and artery were circumferentially dissected. A window of safety was obtained showing the cystic duct entering the gallbladder with no aberrant structures noted. Due to the significant cholecystitis, we were unable to confirm the cystic duct utilizing the ICG. The cystic duct and artery were doubly clipped and divided. A posterior branch of the artery was identified and clipped and divided. The gallbladder was then lifted off the gallbladder fossa with electrocautery. The right upper quadrant was irrigated and hemostasis was found to be good. The gallbladder was placed in an Endo Catch bag and removed through the one of the port sites. The skin incision and fascia had to be extended to allow for removal of the gallbladder. The fascia was closed with a 0 Vicryl suture using the Star-Cora device. The instruments were removed and the robot was undocked. The trochars were removed and the abdomen was allowed to collapse. The skin of all ports was closed with 4-0 Monocryl subcuticular sutures. Dermabond was placed over the wounds. The patient was extubated in the operating room and taken to the PACU where he recovered without apparent incident. All sponge, instrument and needle counts were correct at the conclusion of the procedure. The patient tolerated the procedure well. The nurse practitioner was present and scrubbed for the entirety of the case and was essential in positioning the patient, prepping and draping, retraction and exposure, driving the laparoscope, exchange of the robotic instruments removal of the gallbladder, closure of the incisions, and placement of the dressings. I attest to the content of the Intraoperative Record and any orders documented therein. Any exceptions are noted below.
--- NOTE | 2024-05-21 13:29 | Anesthesiology Progress Note ---
Date of Service May 21, 2024 Anesthesia Post Procedure Vital Signs Vital Signs: Temp Pulse Pulse Pulse Resp BP BP 05/21/24 09:47 37.2 C 95 H 20 118/67 05/21/24 08:00 85 05/21/24 07:45 36.7 C 85 18 115/77 05/21/24 07:33 84 12 05/21/24 04:20 37.5 C 79 20 108/66 05/20/24 23:59 37.7 C H 93 H 20 99/64 L 05/20/24 23:34 37.7 C H 93 H 20 99/64 L 05/20/24 23:09 88 16 05/20/24 21:54 97 H 05/20/24 19:40 38.1 C H 72 20 135/88 05/20/24 18:09 82 05/20/24 17:47 05/20/24 17:47 36.5 C 82 16 142/86 H 05/20/24 13:43 36.4 C L 91 H 19 185/91 H Pulse Ox O2 Del Method FiO2 05/21/24 09:47 94 Room Air 05/21/24 08:00 05/21/24 07:45 97 Room Air 05/21/24 07:33 97 Room Air 21 05/21/24 04:20 97 Room Air 05/20/24 23:59 94 Room Air 05/20/24 23:34 94 Room Air 05/20/24 23:09 94 Room Air 05/20/24 21:54 05/20/24 19:40 96 Room Air 05/20/24 18:09 05/20/24 17:47 Room Air 05/20/24 17:47 98 Room Air 05/20/24 13:43 100 Room Air Pain Intensity Right Abdomen: Pain Intensity: 10 Transfer of Care Handoff Completed per policy Notes Mental Status: alert / awake / arousable and participated in evaluation Patient Amnestic to Procedure: Yes Nausea / Vomiting: adequately controlled Pain: adequately controlled Airway Patency, RR, SpO2: stable & adequate BP & HR: stable & adequate Hydration State: stable & adequate Anesthetic Complications: no major complications apparent and Pt Satisfied with anesthetic care
[2024-05-21] MEDS: ATORVASTATIN 20 MG TAB PO SCH (15:03)
[2024-05-21] MEDS: DULoxetine HCL 60 MG CAP PO SCH (15:03)
[2024-05-21] MEDS: LOSARTAN POTASSIUM 25 MG TAB PO SCH (15:04)
[2024-05-21] MEDS: TAMSULOSIN HCL 0.4 MG CAP PO SCH (15:04)
[2024-05-21] MEDS: PANTOprazole 40 MG TAB PO SCH (15:05)
[2024-05-21] MEDS: HYDROmorphone INJ 0.5 MG/0.5 ML SYR IV PRN (19:35)
[2024-05-22 07:34] LABS: Hematocrit (blood only) 36.2 % (42.0-52.0); Hemoglobin 12.5 g/dl (14.0-18.0); Mean Corpuscular Hemoglobin 31.4 pg (25.0-34.0); Mean Corpuscular Hgb Conc 34.5 g/dL (32.0-36.0); Mean Platelet Volume 9.4 fL (9.4-12.4); Platelet Count 216 K/uL (130-400); RDW Coefficient of Variation 12.7 % (11.5-14.5); RDW Standard Deviation 42.4 fL (36.4-46.3); Red Blood Count 3.98 M/uL (4.70-6.10); White Blood Count 13.11 K/ul (4.8-10.8)
[2024-05-22 07:54] LABS: Albumin Globulin Ratio 1.5 (0.9-2); Albumin Level 3.3 gm/dl (3.4-5.0); BUN Creatinine Ratio 14.3 (10-20); Bilirubin Direct 0.6 mg/dl (0-0.2); Bilirubin,Total 3.1 mg/dl (0.2-1.0); Calcium 8.1 mg/dl (8.6-10.3); Creatinine Clr Calc Pharmacy 85.2 ml/min; Est GFR (Non-African American) 66.5 ml/min; Globulin 2.2 gm/dl (2.5-4.0); Potassium 3.7 mmol/L (3.5-5.1); Total Protein 5.5 gm/dl (6.0-8.3)
--- NOTE | 2024-05-22 09:18 | Surgery Progress Note ---
Date of Service May 22, 2024 Assessment & Plan (1) Acute cholecystitis: Plan: POD 1 Lap [place] Patient reports feeling well WBC 13 T Bili 3.1 (3.1 yesterday repeat delta was 1.0 ) D Bili 0.6 (0.5) dermabond to port sites , CDI Discussion with patient included poss. Discharge today with repeat labs for LFTs and oral antibiotics. Return precautions including fever, chills, yellowing of skin, worsening abd pain. Patient verbalized understanding he may have to return to hospital. F/u outpatient in [address] Perry Patient seen and examined with Dr. Barrientos Admission and Anticipated Discharge Date Admission Date: May 20, 2024 Subjective pt reports feeling well No complaints other then wanting real food not clears no n/v Review of Systems Constitutional: no fever and no chills Respiratory: no dyspnea Cardiovascular: no chest pain Gastrointestinal: no abdominal pain, no nausea and no vomiting Physical Exam Constitutional: cooperative and comfortable; no acute distress Respiratory: normal respiratory effort and able to speak in complete sentences; no respiratory distress Cardiovascular: Rate/Rhythm: regular rate Gastrointestinal (Abdomen): Inspection/Auscultation: + abdominal surgical incision (dermabond CDI); abdomen not distended Percussion/Palpation: abdomen soft Results & Data Vital Signs (Past 12 Hours) Vital Signs Temp Pulse Pulse Resp BP Pulse Ox O2 Del Method 05/22/24 07:33 97.9 F 63 18 113/69 93 Room Air 05/22/24 07:23 Room Air 05/22/24 07:11 76 05/22/24 02:47 97.5 F L 67 18 100/57 L 91 Room Air 05/21/24 23:59 99.0 F 81 18 97/58 L 91 Room Air 05/21/24 21:53 93 H Results CBC w Diff Results: RBC 3.98 M/uL (4.70-6.10) L 05/22/24 WBC 13.11 K/ul (4.8-10.8) H 05/22/24 Hgb 12.5 g/dl (14.0-18.0) L 05/22/24 Hct 36.2 % (42.0-52.0) L 05/22/24 MCV 91.0 fL (80.0-100.0) 05/22/24 MCH 31.4 pg (25.0-34.0) 05/22/24 MCHC 34.5 g/dL (32.0-36.0) 05/22/24 RDW Standard Deviation 42.4 fL (36.4-46.3) 05/22/24 RDW Coefficient of Variation 12.7 % (11.5-14.5) 05/22/24 Plt Count 216 K/uL (130-400) 05/22/24 MPV 9.4 fL (9.4-12.4) 05/22/24 Neutrophils (%) (Auto) 82.7 % 05/20/24 Lymphocytes (%) (Auto) 9.2 % 05/20/24 Monocytes # (Auto) 0.92 K/uL (0.11-0.59) H 05/20/24 Eosinophils # (Auto) 0.12 K/uL (0.00-0.50) 05/20/24 Immature Granulocyte % (Auto) 0.4 % 05/20/24 Neutrophils # (Auto) 11.45 K/uL (1.40-6.50) H 05/20/24 Lymphocytes # (Auto) 1.27 K/uL (1.20-3.40) 05/20/24 Monocytes # (Auto) 0.92 K/uL (0.11-0.59) H 05/20/24 Eosinophils # (Auto) 0.12 K/uL (0.00-0.50) 05/20/24 Basophils # (Auto) 0.03 K/uL (0.00-0.20) 05/20/24 Immature Granulocyte # (Auto) 0.05 K/uL (0.01-0.20) 4 Results CMP Results: Na 139 mmol/L (136-145) 05/22/24 K 3.7 mmol/L (3.5-5.1) 05/22/24 Cl 104 mmol/L (98-107) 05/22/24 CO2 29 mmol/L (21-32) 05/22/24 Anion Gap 6 (3-11) 05/22/24 BUN 17 mg/dl (6-23) 05/22/24 Creatinine 1.19 mg/dl (0.6-1.4) 05/22/24 Estimated GFR ( Amer) 77.0 ml/min 05/22/24 Estimated GFR (Non-Af Amer) 66.5 ml/min 05/22/24 BUN/Creatinine Ratio 14.3 (10-20) 05/22/24 Glu 139 mg/dl (70-99(Fasting)) H 05/22/24 Ca 8.1 mg/dl (8.6-10.3) L 05/22/24 Total Bilirubin 3.1 mg/dl (0.2-1.0) H 05/22/24 Direct Bilirubin 0.6 mg/dl (0-0.2) H 05/22/24 AST 38 U/L (13-39) 05/22/24 ALT 57 U/L (7-52) H 05/22/24 Alkaline Phosphatase 54 U/L (34-104) 05/22/24 TP 5.5 gm/dl (6.0-8.3) L 05/22/24 Albumin 3.3 gm/dl (3.4-5.0) L 05/22/24 Globulin 2.2 gm/dl (2.5-4.0) L 05/22/24 Albumin/Globulin Ratio 1.5 (0.9-2) 05/22/24 PG Care Time/CCT Total # of Minutes Spent Total Time Spent with Patient: Total time spent is greater than 50% in coordination of care (as documented) at patient's floor/unit and/or counseling patient: Coding Level of Care Code 40023 Post Operative Follow-Up Diagnoses Acute cholecystitis K81.0
--- NOTE | 2024-05-22 13:05 | Discharge Summary ---
Discharge Summary Date of Service May 22, 2024 Principal Dx & Hospital Course #1 = Principal Diagnosis (1) Cholecystitis: (2) Epigastric abdominal pain: (3) Non-alcoholic fatty liver disease: (4) GERD (gastroesophageal reflux disease): (5) Elevated liver enzymes: (6) Hypertension: (7) Dyslipidemia: Mr. Colon is a 58 year old gentleman with history of Nonalcoholic fatty liver disease, lumbar radiculopathy, GERD, obesity, elevated LFTs, emphysema who is admitted for acute cholecystitis. Patient s/p lap bianca 05/21. Patient doing well overall and eager for discharge. He reports strong appetite and denies any acute concerns, noting resolution of symptoms from day prior. Discussed with surgery: plan to continue previously prescribed antibiotic course, follow up for labs on 05/24 and follow up with surgery as directed. #Acute cholecystitis #SIRS with tachycardia s/p lap bianca on 05/21 -Discontinue Zosyn -Resume Augmentin course upon discharge -Continue antiemetics and pain regimen -Appreciate Gen Surg recommendations, CTM #HTN #HLD - Hold including losartan: discussed resuming if pressure >140 or until told to by PCP, verbalized understanding #Elevated T Bili #TORIBIO - Chronic stable, LFTs are not elevated today, Tbili 1.0 -Follow up labs on #Emphysema #RICHELLE on CPAP #hx of tobacco smoking - quit 20 years ago - Continue combivent, CPAP HS Notes For Next Care Provider Medication Changes From Visit Completed Augmentin course prescribed from ED Admission HPI Per Admitting Provider Patient is a 58 year old male with PMHx of Nonalcoholic fatty liver disease, lumbar radiculopathy, GERD, obesity, elevated LFTs, emphysema who initially presented to the ER this morning, was told that he had acute cholecystitis, and with pain medication on board felt improved and refused to stay. He is back to the ER within 2 hours with c/o N/V, abdominal pain that began early this AM around 0200. Patient described the pain as sharp, and intense he thought he had food poisoning as he went out to dinner yesterday evening and ate a steak, mashed potatoes and green beans. He denies diarrhea, fever, chills, SOB, CP, and no prior abdominal surgeries. Pt tried to eat again this morning but had worsening abdominal pain, nausea and vomited. Denies any blood in emesis. He states that he is scheduled to have a stress test tomorrow at [facility] for a new diagnosis of emphysema on prior ct that also showed mild coronary calcification. Ct scan was obtained and is reading acute cholecystitis with cholelithiasis and small stones in the cystic duct. Report does not read obstructing stone in cystic duct or in the CBD. General surgery has seen the pt earlier this morning. Pt has taken morning meds today. He vomited, so is unsure if they absorbed. Family Hx: Reports he cannot take succinylcholine with anesthesia because his brother had a bad reaction/anaphylaxis and was told not to take it. Social Hx: quit smoking tobacco 20 years ago, drinks 2-3 beers per week on weekend. No ilicit drug use. Surgical Hx: Arthroscopic surgery knees bilaterally, MCL repair Admission Exam Per Admitting Provider General: awake, alert, no apparent distress Head: Normocephalic, atraumatic ENT: PERRL, EOMI, no pharyngeal exudate, mucous membranes moist Chest: Clear to auscultation, on room air, no adventitious breath sounds Cardiac: Regular rate and rhythm, no murmur, no JVD, normal peripheral pulses, good capillary refill Abdominal: NABS x 4 quadrants, soft, nondistended, + tenderness in RUQ, no rebound or guarding Extremities: Normal inspection, no peripheral edema or erythema, calfs nontender to palpation Psych: Normal mood and affect Neuro: AAO x 3, strength intact bilaterally and rated 5/5, no motor deficits, speech is clear, no peripheral sensory deficits Discharge Exam Constitutional WD/WN, vitals as above Respiratory normal respiratory effort, lungs clear to auscultation Cardiovascular RRR, no murmur, no edema Gastrointestinal (Abdomen) normal bowel sounds, soft, nontender, no hepatosplenomegaly near benign abdomen today--surgical incisions with dermabond Updated Medication List Medication Instructions Recorded Confirmed Type atorvastatin 20 mg tablet 20 mg PO DAILY 09/22/21 05/20/24 History losartan 25 mg tablet 25 mg PO DAILY 09/22/21 05/20/24 History duloxetine 60 mg capsule,delayed 60 mg PO DAILY 10/01/21 05/20/24 History release (Cymbalta) esomeprazole magnesium 40 mg 40 mg PO DAILY 03/05/22 05/20/24 History capsule,delayed release (Nexium) lidocaine 5 % topical patch 1 patch topical DAILY PRN Pain 08/17/22 05/20/24 History hydrocodone 7.5 mg-acetaminophen 1 tab PO BID PRN Severe Pain 09/30/23 05/20/24 History 325 mg tablet (Scale Score 7-10) acetaminophen 500 mg tablet 1,000 mg PO TID PRN Pain 05/20/24 05/20/24 History (Tylenol Extra Strength) amoxicillin 875 mg-potassium 1 tab PO Q12H 10 days #20 tabs 05/20/24 05/20/24 Rx clavulanate 125 mg tablet ipratropium 20 mcg-albuterol 100 1 puff inhalation BID 05/20/24 05/20/24 History mcg/actuation mist for inhalation (Combivent Respimat) tamsulosin 0.4 mg capsule 0.4 mg PO DAILY 05/20/24 05/20/24 History Hospital Stay Data Consultations 05/20/24 14:25 ED Decision to Admit Stat 05/20/24 17:27 Consult General Surgery Routine Procedures Performed Operation Date: 05/21/24 07:00 Actual Procedures p Robotic Laparoscopic Cholecystectomy (Not Applicable) - Rashid Perry DO, FACS Diagnostic Imagining Performed 05/20/24 16:30 US RUQ [US liver] Urgent Pending Results Patient Have Any Pending Studies at Discharge: Yes Discharge Instructions Given to Patient (Per Discharging Provider) You have skin glue over your incisions called dermabond. you may shower with this on. It will tend to dissolve and fall off within a couple weeks. Do not pick at the skin glue You may purchase Tylenol and/or Ibuprofen over the counter if needed for additional pain control over the next few days. Take per manufacturers instructions Please have your blood drawn at the lab (can come to [facility]) to check your liver enzymes to ensure they are downtrending Continue your oral Augmentin that was prescribed to you at your first ER visit. Total Time Total Time Spent Total Time Spent (In Minutes): 35
== END 2024-05-22 14:31 | disposition home or self-care (01) | DRG 419 ==
LOC: ED 13:38 → EDINP 14:35 → 2W 17:24

== ENCOUNTER 2024-09-03 13:30 | Observation (INO) ==
[2024-09-03 14:06] LABS: Basophils # (auto) 0.04 K/uL (0.00-0.20); Basophils % (auto) 0.7 %; Eosinophils # (auto) 0.24 K/uL (0.00-0.50); Hematocrit (blood only) 43.2 % (42.0-52.0); Hemoglobin 15.4 g/dl (14.0-18.0); Immature Granulocytes # (auto) 0.03 K/uL (0.01-0.20); Immature Granulocytes % (auto) 0.5 %; Lymphocytes # (auto) 1.66 K/uL (1.20-3.40); Lymphocytes % (auto) 27.4 %; Mean Corpuscular Hemoglobin 31.2 pg (25.0-34.0); Mean Corpuscular Hgb Conc 35.6 g/dL (32.0-36.0); Mean Corpuscular Volume 87.4 fL (80.0-100.0); Mean Platelet Volume 9.5 fL (9.4-12.4); Monocytes # (auto) 0.46 K/uL (0.11-0.59); Monocytes % (auto) 7.6 %; Neutrophils # (auto) 3.63 K/uL (1.40-6.50); Neutrophils % (auto) 59.8 %; Platelet Count 233 K/uL (130-400); RDW Coefficient of Variation 12.4 % (11.5-14.5); RDW Standard Deviation 39.1 fL (36.4-46.3); Red Blood Count 4.94 M/uL (4.70-6.10); White Blood Count 6.06 K/ul (4.8-10.8)
[2024-09-03 14:24] LABS: Alanine Aminotransferase 49 U/L (7-52); Albumin Globulin Ratio 1.7 (0.9-2); Albumin Level 4.2 gm/dl (3.4-5.0); Alkaline Phosphatase 68 U/L (34-104); Anion Gap 9 (3-11); Aspartate Aminotransferase 25 U/L (13-39); BUN Creatinine Ratio 16.2 (10-20); Bilirubin,Total 1.2 mg/dl (0.2-1.0); Blood Urea Nitrogen 17 mg/dl (6-23); Calcium 9.5 mg/dl (8.6-10.3); Carbon Dioxide 28 mmol/L (21-32); Chloride 99 mmol/L (98-107); Globulin 2.5 gm/dl (2.5-4.0); Glucose 133 mg/dl (70-99(Fasting)); Potassium 3.4 mmol/L (3.5-5.1); Sodium 136 mmol/L (136-145); Total Protein 6.7 gm/dl (6.0-8.3)
[2024-09-03 14:29] LABS: Troponin I High Sensitivity 5.5 pg/ml (0-20)
[2024-09-03 14:33] LABS: INR 0.9 (0.9-1.1); Partial Thromboplastin Time 27 Seconds (21-31); Prothrombin Time 10.3 Seconds (9.0-12.0)
--- NOTE | 2024-09-03 14:57 | XRay Report ---
XR chest 1V not portable CLINICAL HISTORY: Chest pain, nonspecific TECHNIQUE: Single frontal radiograph of the chest was obtained. Comparison: Comparison is made to chest radiograph 10/01/2021 FINDINGS: No lines and tubes are seen. The cardiomediastinal silhouette is normal. The lungs are clear. No evid ence of pleural effusion or pneumothorax. IMPRESSION: No acute chest disease. ACT 112: Negative or not required by law. Electronically signed by: Miguelito Harris M.D. 09/03/2024 2:56 PM
--- NOTE | 2024-09-03 15:14 | Emergency Department Note ---
Impression & Plan Hypertensive urgency, Nausea & vomiting, Vertigo ED Provider Note NAME: RANCHO DOMINGUEZ AGE: 59 SEX: M : 1965 ARRIVES VIA: Walk-In INFORMANT: Patient, Triage report ED PROVIDER(S): Sami Rg MD CHIEF COMPLAINT: Dizziness, elevated blood pressure, nausea vomiting MEDICAL DECISION MAKING: Patient presents due to concern for vertiginous symptoms and associated elevated blood pressure. Nonfocal neurologic exam at bedside. EKG shows trace elevations inferiorly but the patient has no chest pain or shortness of breath and initial troponin is negative. Given the patient's elevated blood pressure as well as these changes at I did state to the patient I thought it would be beneficial for some inpatient treatment monitoring testing which the patient is amenable to. Patient is a normal white count H&H and platelet count. Kidney function is unremarkable. Mild hypokalemia 3.4. Patient's chest x-ray is negative. CT head negative. I did inform the patient the findings he was still comfortable plan of care. The patient does feel much improved after IV Compazine and p.o. meclizine. I did speak the on-call hospital service and the patient was admitted by Dr. Vernon. Discussion w/ other healthcare providers: Moses Murray PA-C with Dr. Vernon inpatient medicine service Prior /Outside records reviewed: None Differential diagnosis: Benign positional vertigo, dehydration, hypovolemia, anemia, infection, hypoglycemia, electrolyte abnormalities, arrhythmia, tox among others were considered. Diagnostics, as interpreted by me: ECG: Normal sinus rhythm, rate 79, normal intervals, normal axis, possible trace elevation in 3 and aVF with T wave inversions in the high lateral leads. This may be slight changes from comparison from May 20, 2024. Cardiac monitoring: An order was placed for continuous cardiac monitoring. The monitor shows a rate of 65 with sinus rhythm. Patient was placed on pulse oximetry Medical decision rules: None Imaging studies: I informally interpreted the patient's chest x-ray does not show obvious pneumonia or pneumothorax with formal report to follow. HPI: Patient presents due to concern for dizziness as well as nausea and vomiting along with elevated blood pressure. The patient states that last he felt dizzy and describes this as a wobbly sensation and checked his blood pressure noted to be high at that time. The patient typically does take losartan 25 mg but did take an extra dose. Blood pressure seem to improve as well as his dizziness which is he describes more as vertigo. The patient does have chronic tinnitus but denies any recent change no hearing loss patient denies any recent changes in elevation underwater activities or plane flights. Patient states that today he developed some similar symptoms while being at work. The patient took his blood pressure that time and was noted to be elevated. The patient has had associated nausea and vomiting. Patient denies any chest pains or shortness of breath. PAST MEDICAL HISTORY: See Below PAST SURGICAL HISTORY: See Below SOCIAL HISTORY: See Below HOME MEDICATIONS: See Below ALLERGIES: See Below VITALS: See Below PHYSICAL EXAMINATION: GENERAL: NAD, non-toxic. EYE EXAM: Normal conjunctiva. PERRL, no anisocoria and EOM's grossly intact w/o pain. No nystagmus noted. OROPHARYNX: Moist mucus membranes, grossly normal dentition. NECK: Trachea midline, no stridor. Supple, no nuchal rigidity, no adenopathy, non-tender. No signs of meningismus. FROM of the neck with good chin to chest and neck extension. No carotid bruits auscultated. LUNGS: Clear to auscultation. Normal chest wall mechanics. HEART: NSR, no MRG. ABDOMEN: Abdomen soft, non-tender, no masses, no rebound or guarding. BACK: No CVA TTP. SKIN: No rashes and no bruising. UPPER EXTREMITIES: Upper extremities are grossly normal. LOWER EXTREMITIES: Grossly normal, no edema. NEURO EXAM: A&O x3, cranial nerves II-XII grossly intact, normal speech, moves all 4 extremities. Good [id number], no drift and no sensory deficits. Past Med/Surg History Problem List (Updated 09/04/24 @ 10:53 by Sami Rg MD) Vertigo (Acute) Nausea & vomiting (Acute) Hypertensive urgency (Acute) Hypertensive urgency Acute cholecystitis (Acute) Sacroiliitis Lumbar facet joint syndrome Lumbar radiculopathy Cervical spine pain Bilateral elbow joint pain Non-alcoholic fatty liver disease GERD (gastroesophageal reflux disease) Calculus of gallbladder Elevated liver enzymes Diaphoresis Dyspnea on exertion Dyslipidemia Hypertension Sensorineural hearing loss of both ears Medical History Sleep apnea Fatty liver Chronic pain Anxiety Left ankle pain DJD (degenerative joint disease) Surgical History Hx laparoscopic cholecystectomy (05/21/24) Robotic Laparoscopic Cholecystectomy (Robotic if available), poss laparoscopic - Rashid Perry DO, FACS S/P MCL repair Family History Grandfather (Maternal) Stroke Hypertension Mother Diabetes Hypertension Grandfather (Paternal) Hypertension Grandmother (Maternal) Hypertension Grandmother (Paternal) Hypertension Father Hypertension Denies family history of Heart disease Cancer Social History Smoking Status: Former smoker Tobacco Type: Cigarettes Second Hand Exposure: Yes; Do You Dip or Chew Tobacco: No; Hx Alcohol Use: Yes Alcohol type: beer Alcohol Intake Frequency: 2-3 x/Week Hx Substance Use: No Preferred Language: Kinyarwanda Communication Ability: Effective Hat Cutter Required: No Beliefs That Will Affect Care: None marital status: marital status details: [employer] Current Living Situation: Spouse and Family Current Living Situation Comment: spouse and daughter current occupational status: employed Other Information That Helps Us Care for You: No Feels Safe at Home: Yes Safety Concerns: Feels Safe At This Time Assistive Devices: Glasses Allergies Allergies Allergy/AdvReac Type Severity Reaction Status Date / Time lisinopril Allergy Cough Verified 09/03/24 17:32 succinylcholine AdvReac It caused Verified 09/03/24 17:32 his brother to stop breathing Home Meds Home Medications Medication Instructions Recorded Confirmed atorvastatin 20 mg tablet 20 mg PO QAM 09/22/21 09/03/24 losartan 25 mg tablet 25 mg PO QAM 09/22/21 09/03/24 duloxetine 60 mg capsule,delayed 60 mg PO QAM 10/01/21 09/03/24 release (Cymbalta) esomeprazole magnesium 40 mg 40 mg PO QAM 03/05/22 09/03/24 capsule,delayed release (Nexium) lidocaine 5 % topical patch 1 patch topical DAILY PRN Pain 08/17/22 09/03/24 hydrocodone 7.5 mg-acetaminophen 1 tab PO BID PRN Severe Pain 09/30/23 09/03/24 325 mg tablet (Scale Score 7-10) acetaminophen 500 mg tablet 1,000 mg PO TID PRN Pain 05/20/24 09/03/24 (Tylenol Extra Strength) ipratropium 20 mcg-albuterol 100 1 puff inhalation BID 05/20/24 09/03/24 mcg/actuation mist for inhalation (Combivent Respimat) tamsulosin 0.4 mg capsule 0.4 mg PO QAM 05/20/24 09/03/24 hydrochlorothiazide 12.5 mg capsule 12.5 mg PO QAM 06/04/24 09/03/24 Results & Data (ED) Vital Signs Vital Signs - 24 hr 09/03/24 13:33 09/03/24 15:42 09/03/24 17:00 Temperature 36.4 C L Temperature Source Oral Pulse Rate 74 Pulse Rate [Apical] 72 79 Respiratory Rate 20 19 21 Respiratory Effort / Characteristics Non-Labored Spontaneous Respiratory Depth Normal Respiratory Pattern Regular Blood Pressure 127/88 Blood Pressure [Right Arm] 157/91 H 115/86 Blood Pressure Mean 101 Blood Pressure Mean [Right Arm] 113 95 Pulse Oximetry 100 100 98 Oxygen Delivery Method Room Air Room Air Room Air Sepsis Recent Fever Within 48 Hours No Sepsis New/Unexplained Change in Mental Status N/A Sepsis Action Taken by Nursing No Action Required Home Medications Current Medication List: was personally reviewed by me Laboratory Data Attestation: I reviewed the patient's lab results. 09/04/24 05:21 09/04/24 07:31 Lab Results 09/03/24 Range/Units 13:51 WBC 6.06 (4.8-10.8) K/ul RBC 4.94 (4.70-6.10) M/uL Hgb 15.4 (14.0-18.0) g/dl Hct 43.2 (42.0-52.0) % MCV 87.4 (80.0-100.0) fL MCH 31.2 (25.0-34.0) pg MCHC 35.6 (32.0-36.0) g/dL RDW Std Deviation 39.1 (36.4-46.3) fL RDW Coeff of Isidra 12.4 (11.5-14.5) % Plt Count 233 (130-400) K/uL MPV 9.5 (9.4-12.4) fL Immature Gran % (Auto) 0.5 % Neut % (Auto) 59.8 % Lymph % (Auto) 27.4 % [place] % (Auto) 7.6 % Eos % (Auto) 4.0 % Baso % (Auto) 0.7 % Neut # (Auto) 3.63 (1.40-6.50) K/uL Lymph # (Auto) 1.66 (1.20-3.40) K/uL [place] # (Auto) 0.46 (0.11-0.59) K/uL Eos # (Auto) 0.24 (0.00-0.50) K/uL Baso # (Auto) 0.04 (0.00-0.20) K/uL Immature Gran # (Auto) 0.03 (0.01-0.20) K/uL PT 10.3 (9.0-12.0) Seconds INR 0.9 (0.9-1.1) APTT 27 (21-31) Seconds PTT Ratio 1.0 Sodium 136 (136-145) mmol/L Potassium 3.4 L (3.5-5.1) mmol/L Chloride 99 (98-107) mmol/L Carbon Dioxide 28 (21-32) mmol/L Anion Gap 9 (3-11) BUN 17 (6-23) mg/dl Creatinine 1.05 (0.6-1.4) mg/dl Est Cr Clr Drug Dosing Not Reportable eGFR 81.26 BUN/Creatinine Ratio 16.2 (10-20) Glucose 133 H (70-99(Fasting)) mg/dl Calcium 9.5 (8.6-10.3) mg/dl Total Bilirubin 1.2 H (0.2-1.0) mg/dl AST 25 (13-39) U/L ALT 49 (7-52) U/L Alkaline Phosphatase 68 (34-104) U/L Troponin I High Sens 5.5 (0-20) pg/ml Total Protein 6.7 (6.0-8.3) gm/dl Albumin 4.2 (3.4-5.0) gm/dl Globulin 2.5 (2.5-4.0) gm/dl Albumin/Globulin Ratio 1.7 (0.9-2) Administered Medications Albuterol (Albuterol Hfa 8 Gm Inhaler (Combivent Respimat P&T Subs)) 1 puffs INH BIDR [facility]; Protocol Stop: 10/03/24 18:59 Last Admin: 09/04/24 08:11 Dose: 1 puffs Documented By: Admin: 09/03/24 22:15 Dose: Not Given Documented By: AMELIA Atorvastatin Calcium (Atorvastatin 20 Mg Tab) 20 mg PO [facility] Stop: 10/04/24 08:59 Last Admin: 09/04/24 08:13 Dose: 20 mg Documented By: MANJIT Duloxetine HCl (Duloxetine Hcl 60 Mg Cap) 60 mg PO [facility] Stop: 10/04/24 08:59 Last Admin: 09/04/24 08:13 Dose: 60 mg Documented By: MANJIT Enoxaparin Sodium (Enoxaparin Inj 40 Mg/0.4 Ml Syr) 40 mg SQ Q24H [facility] Stop: 10/03/24 21:29 Last Admin: 09/03/24 22:43 Dose: Not Given Documented By: MIK Hydrochlorothiazide (Hydrochlorothiazide 25 Mg Tab) 12.5 mg PO [facility] Stop: 10/04/24 08:59 Last Admin: 09/04/24 08:12 Dose: 12.5 mg Documented By: MANJIT Ipratropium [place] (Ipratropium Hfa Inhaler (Combivent Respimat P&T Subs)) 1 puffs INH BIDR [facility]; Protocol Stop: 10/03/24 18:59 Last Admin: 09/04/24 08:11 Dose: 1 puffs Documented By: Admin: 09/03/24 22:15 Dose: Not Given Documented By: AMELIA Losartan Potassium (Losartan Potassium 50 Mg Tab) 50 mg PO [facility] Stop: 10/04/24 08:59 Last Admin: 09/04/24 08:13 Dose: 50 mg Documented By: MANJIT Tamsulosin HCl (Tamsulosin Hcl 0.4 Mg Cap) 0.4 mg PO [facility] Stop: 10/04/24 08:59 Last Admin: 09/04/24 08:13 Dose: 0.4 mg Documented By: MANJIT Discontinued Medications Prochlorperazine (Compazine) 1 mls @ 1 mls/min IV ONE ONE Stop: 09/03/24 15:41 Last Admin: 09/03/24 15:47 Dose: 1 mls/min Documented By: HELENA Sodium Chloride (Nss) 500 mls @ 999 mls/hr IV .Q31M ONE Stop: 09/03/24 16:10 Last Infusion: 09/03/24 18:16 Dose: Infused Documented By: Admin: 09/03/24 15:47 Dose: 999 mls/hr Documented By: HELENA Potassium Chloride (K [place] / Wtr) 10 meq in 100 mls @ 100 mls/hr IV Q1H LAURA Stop: 09/03/24 21:59 Last Infusion: 09/04/24 02:50 Dose: Infused Documented By: Admin: 09/03/24 23:31 Dose: 50 mls/hr Documented By: Infusion: 09/03/24 21:23 Dose: Infused Documented By: Admin: 09/03/24 20:23 Dose: 100 mls/hr Documented By: Infusion: 09/03/24 20:19 Dose: Infused Documented By: Admin: 09/03/24 19:19 Dose: 100 mls/hr Documented By: Infusion: 09/03/24 19:10 Dose: Infused Documented By: Admin: 09/03/24 18:10 Dose: 100 mls/hr Documented By: SIDRA Meclizine HCl (Meclizine Hcl 25 Mg Tab) 25 mg PO NOW STA Stop: 09/03/24 15:41 Last Admin: 09/03/24 15:46 Dose: 25 mg Documented By: HELENA Imaging Data Radiologist's Impression: Chest X-Ray 09/03/24 13:40 XR chest 1V not portable CLINICAL HISTORY: Chest pain, nonspecific TECHNIQUE: Single frontal radiograph of the chest was obtained. Comparison: Comparison is made to chest radiograph 10/01/2021 FINDINGS: No lines and tubes are seen. The cardiomediastinal silhouette is normal. The lungs are clear. No evidence of pleural effusion or pneumothorax. IMPRESSION: No acute chest disease. ACT 112: Negative or not required by law. Electronically signed by: Miguelito Harris M.D. 09/03/2024 2:56 PM Chest X-Ray 09/03/24 13:40 XR chest 1V not portable CLINICAL HISTORY: Chest pain, nonspecific TECHNIQUE: Single frontal radiograph of the chest was obtained. Comparison: Comparison is made to chest radiograph 10/01/2021 FINDINGS: No lines and tubes are seen. The cardiomediastinal silhouette is normal. The lungs are clear. No evidence of pleural effusion or pneumothorax. IMPRESSION: No acute chest disease. ACT 112: Negative or not required by law. Electronically signed by: Miguelito Harris M.D. 09/03/2024 2:[address] 09/03/24 15:43 CT head/brain wo con CLINICAL HISTORY: COLLAZO/vertigo Technique: Contiguous axial CT images of the head were acquired from the base of the skull to the vertex without intravenous contrast administration. Images were viewed in brain, subdural and bone windows. Automated dose lowering techniques and/or adjustment according to patient size were utilized for this exam. Comparison: None available at the time of this dictation. Findings: The ventricles, basal cisterns, and cerebral sulci are normal. There is no acute intracranial hemorrhage or evidence of acute territorial infarction. Neither mass effect, shift of the midline structures, nor abnormal extra-axial fluid collections are shown. Soft tissue thickening seen in the sinuses most prominently in the left maxillary sinus. The orbits appear normal. There are no acute fractures of the calvaria or scalp swelling. Impression: No acute intracranial hemorrhage, no evidence of acute territorial infarction or other acute intracranial disease process. ACT 112: Negative or not required by law. Electronically signed by: Miguelito Harris M.D. 09/03/2024 4:08 PM Discharge Plan Visit Data Chief Complaint: Vomiting Stated Complaint: HIGH BLOOD PRESSURE, VOMITING, DIZZY ED Provider: Sami Rg Discharge Problem: Hypertensive urgency, Nausea & vomiting, Vertigo Patient Disposition: Admitted As Inpatient Discharge Instructions Interventions: ED Discharge Assessment Last Done: 09/03/24 21:07 Discharge Problem: Nausea & vomiting Qualifiers: Vomiting type: unspecified Qualified Code(s): R11.2 - Nausea with vomiting, unspecified
[2024-09-03] MEDS: MECLIZINE HCL 25 MG TAB PO STA (15:46)
[2024-09-03] MEDS: PROCHLORPERAZINE 1 ML IV ONE (15:47)
[2024-09-03] MEDS: SODIUM CHLORIDE 0.9% 500 ML IV ONE (15:47)
--- NOTE | 2024-09-03 16:10 | CT Scan Report ---
CT head/brain wo con CLINICAL HISTORY: COLLAZO/vertigo Technique: Contiguous axial CT images of the head were acquired from the base of the skull to the joleen mary without intravenous contrast administration. Images were viewed in brain, subdural and bone [facility]. Automated dose lowering techniques and/or adjustment according to patient size were utilized for this exam. Comparison: None available at the time of this dictation. Findings: The ventricles, basal cisterns, and cerebral sulci are normal. There is no acute intracranial hemorrh age or evidence of acute territorial infarction. Neither mass effect, shift of the midline structures , nor abnormal extra-axial fluid collections are shown. Soft tissue thickening seen in the sinuses most prominently in the left maxillary sinus. The orbits a ppear normal. There are no acute fractures of the calvaria or scalp swelling. Impression: No acute intracranial hemorrhage, no evidence of acute territorial infarction or other acute intracra nial disease process. ACT 112: Negative or not required by law. Electronically signed by: Miguelito Harris M.D. 09/03/2024 4:08 PM
--- NOTE | 2024-09-03 16:21 | Electrocardiogram Report ---
Test Reason : Blood Pressure : */* mmHG Vent. Rate : 79 BPM Atrial Rate : 79 BPM P-R Int : 150 ms QRS Dur : 88 ms QT Int : 362 ms P-R-T Axes : 24 74 94 degrees QTcB Int : 415 ms Normal sinus rhythm Normal ECG When compared with ECG of 20-May-2024 07:58, No significant change was found Confirmed by Emanuel Bazzi ([id number]) on 09/03/2024 4:20:49 PM Referred By: Confirmed By: Emanuel Bazzi
--- NOTE | 2024-09-03 17:45 | History & Physical Report ---
Date of Service September 03, 2024 Assessment & Plan (1) Hypertensive urgency: Plan Ramo Colon is a 59y/o M with PMHx significant for HTN, BPH, hyperlipidemia, GERD, arthritis, nonalcoholic fatty liver disease, lumbar radiculopathy, obesity, elevated LFTs, emphysema, anxiety, RICHELLE on CPAP, sensorineural hearing loss of both ears and chronic pain who presented to the ED for evaluation of high blood pressure with associated dizziness and N/V. Hypertensive Urgency: Lab work rather unremarkable. CXR negative, head CT negative. BP was 115/86 at time of sign-out. He is s/p IV Compazine x 1, po meclizine 25mg and 1/2L NSS in the ED. Dizziness and nausea/vomiting significantly improved. Will hold off on brain MRI for now per patient's request. Will increase losartan to 50mg starting tomorrow morning. Continue home HCTZ dosing. As needed IV hydralazine ordered. Close BP monitoring. Will hold on additional IVF at this time. TORIBIO: Total bilirubin 1.2 on admission, no other LFT elevations. Repeat CMP tomorrow AM. Hypokalemia: K+ 3.4 on admission, started on IV KCl x 4 bags. Continue to closely monitor K+ with AM labs and replete PRN. Other Chronic Medical Conditions: BPH, GERD, hyperlipidemia, anxiety, emphysema and chronic pain --> Can continue home medications for these specific conditions. Continue CPAP HS for RICHELLE. DVT Prophylaxis: SQ Lovenox Code Status: FULL CODE PCP: JULIO CÉSAR Parekh Disposition: Observation in Med/Surg + Telemetry, likely can be discharged home tomorrow if BP and symptoms improved. Patient seen in collaboration with Dr. Vernon. Please see addendum. I spent a total of 45 minutes coordinating, documenting, and providing care for this patient excluding time spent in the performance of separately billed services. This included personally reviewing all current laboratories and imaging studies, medical reconciliation, outpatient chart review and discussion with specialists. This chart was completed in part utilizing Speech Voice Recognition Software. Grammatical errors, random word insertions, pronoun errors, and incomplete sentences are an occasional consequence of this system due to software limitations, ambient noise, and hardware issues. Any formal questions or concerns about the content, text, or information contained within the body of t his dictation should be directly addressed to the provider for clarification. History of Present Illness Chief Complaint: N/V, Dizziness & High Blood Pressure Primary Care Provider: JULIO CÉSAR Parekh Darlene is a 59y/o M with PMHx significant for HTN, BPH, hyperlipidemia, GERD, arthritis, nonalcoholic fatty liver disease, lumbar radiculopathy, obesity, elevated LFTs, emphysema, anxiety, RICHELLE on CPAP, sensorineural hearing loss of both ears and chronic pain who presented to the ED for evaluation of high blood pressure with associated dizziness and N/V. History obtained from patient and associated chart review. Patient with an episode of high blood pressure with associated dizziness and nausea/vomiting this afternoon following lunch. Reports his BP was around 190/110 when he took it around that time. Mentions he took his regular dose of losartan 25mg this morning around 6:30AM and then took an additional 25mg of losartan after lunch when he discovered his BP was so elevated. Mentions the dizziness and nausea/vomiting lasted around 15 to 20 minutes. He reports he had some blurry vision along with the dizziness however no falls or trauma. He mentions that he had an episode like this previously on Tuesday morning around 4AM as well. This episode occurred prior to taking his normal dose of losartan 25mg in the morning and his BP when he took at that time was in the 150s over 90s. His BP had improved following his normal dose of losartan 25mg on Tuesday and he experienced no further symptoms up until this afternoon. BP was 115/86 at time of sign-out. He is s/p IV Compazine x 1, po meclizine 25mg and 1/2L NSS in the ED. He denied any dizziness nor nausea/vomiting during our conversation. Reports he feels back to baseline. Allergies Allergy/AdvReac Type Severity Reaction Status Date / Time lisinopril Allergy Cough Verified 09/03/24 17:32 succinylcholine AdvReac It caused Verified 09/03/24 17:32 his brother to stop breathing Home Medications Medication Instructions Recorded Confirmed Type atorvastatin 20 mg tablet 20 mg PO QAM 09/22/21 09/03/24 History losartan 25 mg tablet 25 mg PO QAM 09/22/21 09/03/24 History duloxetine 60 mg capsule,delayed 60 mg PO QAM 10/01/21 09/03/24 History release (Cymbalta) esomeprazole magnesium 40 mg 40 mg PO QAM 03/05/22 09/03/24 History capsule,delayed release (Nexium) lidocaine 5 % topical patch 1 patch topical DAILY PRN Pain 08/17/22 09/03/24 History hydrocodone 7.5 mg-acetaminophen 1 tab PO BID PRN Severe Pain 09/30/23 09/03/24 History 325 mg tablet (Scale Score 7-10) acetaminophen 500 mg tablet 1,000 mg PO TID PRN Pain 05/20/24 09/03/24 History (Tylenol Extra Strength) ipratropium 20 mcg-albuterol 100 1 puff inhalation BID 05/20/24 09/03/24 History mcg/actuation mist for inhalation (Combivent Respimat) tamsulosin 0.4 mg capsule 0.4 mg PO QAM 05/20/24 09/03/24 History hydrochlorothiazide 12.5 mg capsule 12.5 mg PO QAM 06/04/24 09/03/24 History Past Med/Surg History Problem List Hypertensive urgency Acute cholecystitis (Acute) Sacroiliitis Lumbar facet joint syndrome Lumbar radiculopathy Cervical spine pain Bilateral elbow joint pain Non-alcoholic fatty liver disease GERD (gastroesophageal reflux disease) Calculus of gallbladder Elevated liver enzymes Diaphoresis Dyspnea on exertion Dyslipidemia Hypertension Sensorineural hearing loss of both ears Medical History Sleep apnea Fatty liver Chronic pain Anxiety Left ankle pain DJD (degenerative joint disease) Surgical History Hx laparoscopic cholecystectomy (05/21/24) Robotic Laparoscopic Cholecystectomy (Robotic if available), poss laparoscopic - Rashid Perry DO, FACS S/P MCL repair Family History Grandfather (Maternal) Stroke Hypertension Mother Diabetes Hypertension Grandfather (Paternal) Hypertension Grandmother (Maternal) Hypertension Grandmother (Paternal) Hypertension Father Hypertension Denies family history of Heart disease Cancer Social History Smoking Status: Former smoker Tobacco Type: Cigarettes Second Hand Exposure: Yes; Do You Dip or Chew Tobacco: No; Hx Alcohol Use: Yes Alcohol type: beer Alcohol Intake Frequency: 2-3 x/Week Hx Substance Use: No Preferred Language: Tanzanian Communication Ability: Effective Online Education Manager Required: No Beliefs That Will Affect Care: None marital status: marital status details: [employer] Current Living Situation: Spouse and Family Current Living Situation Comment: spouse and daughter current occupational status: employed Other Information That Helps Us Care for You: No Feels Safe at Home: Yes Safety Concerns: Feels Safe At This Time Assistive Devices: Glasses Review of Systems Review of Systems: At least ten systems reviewed and negative, except as noted in the HPI. Physical Exam Physical Exam: General: WD/WN, vitals as above, NAD, sitting up in chair at bedside, pleasant, conversing appropriately. A+Ox3, euthymic affect. HEENT: Normocephalic, atraumatic. PERRL, conjunctivae normal, anicteric sclerae. External ear and nose normal, oropharynx normal. Respiratory: Normal respiratory effort, lungs clear to auscultation, no wheeze, rales, rhonchi. No accessory muscle use. Cardiovascular: Regular rate, rhythm, no murmur, normal peripheral pulses, no BLE edema. Vessels: No JVD. Abdomen/GI: Normal bowel sounds, soft, nontender, no hepatosplenomegaly. Extremities/Musculoskeletal: No cyanosis or clubbing, extremities motor strength intact, moves all extremities. Neurologic: EOMI, no focal deficits, CN's II-XI not formally tested but appear grossly intact bilaterally. Skin: No rashes, normal color, warm/dry. Results & Data Results & Data Vital Signs (Past 12 Hours) Vital Signs Temp Pulse Pulse Resp BP BP Pulse Ox 09/03/24 17:00 79 21 115/86 98 09/03/24 15:42 72 19 157/91 H 100 09/03/24 13:33 36.4 C L 74 20 127/88 100 O2 Del Method 09/03/24 17:00 Room Air 09/03/24 15:42 Room Air 09/03/24 13:33 Room Air Laboratory Results Short CBC 10/07/24 Range/Units 13:51 WBC 6.06 (4.8-10.8) K/ul Hgb 15.4 (14.0-18.0) g/dl Hct 43.2 (42.0-52.0) % Plt Count 233 (130-400) K/uL BMP 09/03/24 13:51 Sodium 136 Potassium 3.4 L Chloride 99 Carbon Dioxide 28 BUN 17 Creatinine 1.05 Glucose 133 H Calcium 9.5 Liver Function 09/03/24 Range/Units 13:51 Total Bilirubin 1.2 H (0.2-1.0) mg/dl AST 25 (13-39) U/L ALT 49 (7-52) U/L Alkaline Phosphatase 68 (34-104) U/L Albumin 4.2 (3.4-5.0) gm/dl Diagnostic Findings Chest X-Ray 09/03/24 13:40 XR chest 1V not portable CLINICAL HISTORY: Chest pain, nonspecific TECHNIQUE: Single frontal radiograph of the chest was obtained. Comparison: Comparison is made to chest radiograph 10/01/2021 FINDINGS: No lines and tubes are seen. The cardiomediastinal silhouette is normal. The lungs are clear. No evidence of pleural effusion or pneumothorax. IMPRESSION: No acute chest disease. ACT 112: Negative or not required by law. Electronically signed by: Miguelito Harris M.D. 09/03/2024 2:[address] 09/03/24 15:43 CT head/brain wo con CLINICAL HISTORY: COLLAZO/vertigo Technique: Contiguous axial CT images of the head were acquired from the base of the skull to the vertex without intravenous contrast administration. Images were viewed in brain, subdural and bone windows. Automated dose lowering techniques and/or adjustment according to patient size were utilized for this exam. Comparison: None available at the time of this dictation. Findings: The ventricles, basal cisterns, and cerebral sulci are normal. There is no acute intracranial hemorrhage or evidence of acute territorial infarction. Neither mass effect, shift of the midline structures, nor abnormal extra-axial fluid collections are shown. Soft tissue thickening seen in the sinuses most prominently in the left maxillary sinus. The orbits appear normal. There are no acute fractures of the calvaria or scalp swelling. Impression: No acute intracranial hemorrhage, no evidence of acute territorial infarction or other acute intracranial disease process. ACT 112: Negative or not required by law. Electronically signed by: Miguelito Harris M.D. 09/03/2024 4:08 PM Medications Administered Discontinued Medications Prochlorperazine (Compazine) 1 mls @ 1 mls/min IV ONE ONE Stop: 09/03/24 15:41 Last Admin: 09/03/24 15:47 Dose: 1 mls/min Documented By: HELENA Sodium Chloride (Nss) 500 mls @ 999 mls/hr IV .Q31M ONE Stop: 09/03/24 16:10 Last Admin: 09/03/24 15:47 Dose: 999 mls/hr Documented By: HELENA Meclizine HCl (Meclizine Hcl 25 Mg Tab) 25 mg PO NOW STA Stop: 09/03/24 15:41 Last Admin: 09/03/24 15:46 Dose: 25 mg Documented By: HELENA Code Status & VTE Plan Code Status FULL CODE Supervising Physician Co-Signing Physician Notes Attending Addendum: Case reviewed with the advanced practitioner. I have personally performed a history and physical examination on the patient. I have reviewed the advanced practitioner's documentation on the date of service referenced in note, and I agree with, and take responsibility for the plan of care. please refer to her notes for full details patient seen and examined, records reviewed by myself as well on exam, patient seen resting in bed, comfortable feels better overall dizziness resolved no chest pain, dyspnea, palpitations no other symptoms VS noted and reviewed oriented x3, not in distress, speaks in sentences with no effort nor accessory muscle use normal rate, regular rhythm, no murmurs clear breath sounds bilaterally non distended, soft, nontender no bipedal edema, erythema, warmth no neuro deficits all labs, imaging noted and reviewed ASSESSMENT AND PLAN> DIZZINESS LIKELY SECONDARY TO UNCONTROLLED HYPERTENSION CT head: no acute process BP improving increase Losartan to 50mg po daily, continue usual HCTZ other diagnoses and plan of care as per advanced practitioner's notes J Luis Vernon MD
[2024-09-03] MEDS ORDERED: HYDROCODONE/ACETAMINOPHEN 7.5/325MG TAB PO PRN (18:07)
[2024-09-03] MEDS: POTASSIUM CHLORIDE / WTR 10 MEQ/100 ML PLCT IV SCH (18:10)
[2024-09-03] MEDS ORDERED: IPRATROPIUM BROMIDE/ALBUTEROL respimat INH INH SCH (21:00)
[2024-09-03] MEDS ORDERED: hydrALAZINE HCL 20 MG/ML VIAL IV PRN (21:20)
[2024-09-03] MEDS ORDERED: MECLIZINE 12.5 MG TAB PO PRN (21:20)
[2024-09-03] MEDS ORDERED: MAGNESIUM HYDROXIDE SUSP 30 ML UDC PO PRN (21:20)
[2024-09-03] MEDS ORDERED: ACETAMINOPHEN 325 MG TAB PO PRN (21:20)
[2024-09-03] MEDS ORDERED: ONDANSETRON INJ 2 MG/ML 2 ML VIAL IV PRN (21:20)
[2024-09-03] MEDS ORDERED: POLYETHYLENE (MIRALAX) 17 GM PACK PO PRN (21:20)
[2024-09-03] MEDS: Albuterol HFA 8 GM Inhaler (Combivent Respimat P&T Subs) INH SCH (22:15)
[2024-09-03] MEDS: Ipratropium HFA Inhaler (Combivent Respimat P&T Subs) INH SCH (22:15)
[2024-09-03] MEDS: ENOXAPARIN INJ 40 MG/0.4 ML SYR SQ SCH (22:43)
[2024-09-04 06:12] LABS: Hematocrit (blood only) 40.4 % (42.0-52.0); Hemoglobin 14.5 g/dl (14.0-18.0); Mean Corpuscular Hemoglobin 31.4 pg (25.0-34.0); Mean Corpuscular Hgb Conc 35.9 g/dL (32.0-36.0); Mean Corpuscular Volume 87.4 fL (80.0-100.0); Mean Platelet Volume 9.8 fL (9.4-12.4); Platelet Count 220 K/uL (130-400); RDW Coefficient of Variation 12.3 % (11.5-14.5); RDW Standard Deviation 39.7 fL (36.4-46.3); Red Blood Count 4.62 M/uL (4.70-6.10); White Blood Count 6.77 K/ul (4.8-10.8)
[2024-09-04 06:22] LABS: Anion Gap 5 (3-11); BUN Creatinine Ratio 14.7 (10-20); Blood Urea Nitrogen 15 mg/dl (6-23); Calcium 8.8 mg/dl (8.6-10.3); Carbon Dioxide 29 mmol/L (21-32); Chloride 106 mmol/L (98-107); Creatinine Clr Calc Pharmacy 94.5 ml/min; Glucose 122 mg/dl (70-99(Fasting)); Phosphorus 2.9 mg/dl (2.5-4.9); Sodium 140 mmol/L (136-145)
[2024-09-04] MEDS: hydroCHLOROthiazide 25 MG TAB PO SCH (08:12)
[2024-09-04] MEDS: TAMSULOSIN HCL 0.4 MG CAP PO SCH (08:13)
[2024-09-04] MEDS: DULoxetine HCL 60 MG CAP PO SCH (08:13)
[2024-09-04] MEDS: LOSARTAN POTASSIUM 50 MG TAB PO SCH (08:13)
[2024-09-04] MEDS: PANTOprazole 40 MG TAB PO SCH (08:13)
[2024-09-04] MEDS: ATORVASTATIN 20 MG TAB PO SCH (08:13)
[2024-09-04 11:12] VITALS: RESP 18; TEMP 97.7; O2SAT 97
--- NOTE | 2024-09-04 11:33 | Hospitalist Progress Note ---
Date of Service September 04, 2024 Assessment & Plan (1) Hypertensive urgency: Plan Ramo Colon is a 59y/o M with PMHx significant for HTN, BPH, hyperlipidemia, GERD, arthritis, nonalcoholic fatty liver disease, lumbar radiculopathy, obesity, elevated LFTs, emphysema, anxiety, RICHELLE on CPAP, sensorineural hearing loss of both ears and chronic pain who presented to the ED for evaluation of high blood pressure with associated dizziness and N/V. Hypertensive Urgency: --CT head:No acute intracranial hemorrhage, no evidence of acute territorial infarction or other acute intracranial disease process. Losartan increased to 50 mg daily Continue hydrochlorothiazide 12.5 mg daily Advised to monitor blood pressure regularly at home Blood pressure improved Plan to be discharged home today Dizziness Likely secondary to uncontrolled hypertension Reports chronic tinnitus--unchanged Meclizine as needed States feeling well after blood pressure control, no symptoms currently Advised to follow-up with ENT as outpatient given chronic tinnitus TORIBIO: Monitor Hypokalemia: Replete and monitor Other Chronic Medical Conditions: BPH, GERD, hyperlipidemia, anxiety, emphysema and chronic pain Can continue home medications as able Continue CPAP HS for RICHELLE. DVT Px: SQ Lovenox Code Status: FULL CODE Disposition: Home Admission and Anticipated Discharge Date Admission Date: September 03, 2024 Subjective Patient is seen and examined at bedside Dizziness resolved Blood pressure much improved Denies any chest pain, dyspnea, nausea, vomiting, abdominal pain Plan to be discharged home today Review of Systems Review of Systems: All systems reviewed & are unremarkable except as noted in Subjective Physical Exam Physical Exam: Physical Exam: Vitals signs as noted above General Appearance:Obese, no apparent distress Head: normocephalic, Atraumatic Eyes: normal inspection, EOMI Neck: supple, Trachea midline Respiratory/Chest: Normal breath sounds, CTA, No accessory muscle use Cardiovascular: S1, S2, No murmur Abdomen/GI:Soft, Non tender, Bowel sounds present Extremities/Musculoskeletal:normal inspection, Trace edema Neurologic/Psych:AAOX3, grossly no focal neurological deficits Skin: normal color, warm Results & Data Results & Data Vital Signs (Past 12 Hours) Vital Signs Temp Pulse Pulse Resp BP Pulse Ox O2 Del Method 09/04/24 11:11 36.5 C 68 18 129/82 97 Room Air 09/04/24 08:20 Room Air 09/04/24 08:11 60 16 98 Room Air 09/04/24 07:31 36.4 C L 67 18 136/88 96 Room Air 09/04/24 07:10 62 09/04/24 04:09 36.5 C 68 18 99/62 L 97 Room Air Laboratory Results Short CBC 09/03/24 09/04/24 Range/Units 13:51 05:21 WBC 6.06 6.77 (4.8-10.8) K/ul Hgb 15.4 14.5 (14.0-18.0) g/dl Hct 43.2 40.4 L (42.0-52.0) % Plt Count 233 220 (130-400) K/uL BMP 09/03/24 09/04/24 09/04/24 13:51 05:21 07:31 Sodium 136 140 Potassium 3.4 L TNP 3.9 Chloride 99 106 Carbon Dioxide 28 29 BUN 17 15 Creatinine 1.05 1.02 Glucose 133 H 122 H Calcium 9.5 8.8 Liver Function 09/03/24 Range/Units 13:51 Total Bilirubin 1.2 H (0.2-1.0) mg/dl AST 25 (13-39) U/L ALT 49 (7-52) U/L Alkaline Phosphatase 68 (34-104) U/L Albumin 4.2 (3.4-5.0) gm/dl
--- NOTE | 2024-09-04 11:43 | Discharge Summary ---
Date of Service September 04, 2024 Admission HPI Per Admitting Provider Ramo Colon is a 59y/o M with PMHx significant for HTN, BPH, hyperlipidemia, GERD, arthritis, nonalcoholic fatty liver disease, lumbar radiculopathy, obesity, elevated LFTs, emphysema, anxiety, RICHELLE on CPAP, sens orineural hearing loss of both ears and chronic pain who presented to the ED for evaluation of high blood pressure with associated dizziness and N/V. History obtained from patient and associated chart review. Patient with an episode of high blood pressure with associated dizziness and nausea/vomiting this afternoon following lunch. Reports his BP was around 190/110 when he took it around that time. Mentions he took his regular dose of losartan 25mg this morning around 6:30AM and then took an additional 25mg of losartan after lunch when he discovered his BP was so elevated. Mentions the dizziness and nausea/vomiting lasted around 15 to 20 minutes. He reports he had some blurry vision along with the dizziness however no falls or trauma. He mentions that he had an episode like this previously on Tuesday morning around 4AM as well. This episode occurred prior to taking his normal dose of losartan 25mg in the morning and his BP when he took at that time was in the 150s over 90s. His BP had improved following his normal dose of losartan 25mg on Tuesday and he experienced no further symptoms up until this afternoon. BP was 115/86 at time of sign-out. He is s/p IV Compazine x 1, po meclizine 25mg and 1/2L NSS in the ED. He denied any dizziness nor nausea/vomiting during our conversation. Reports he feels back to baseline. Admission Exam Per Admitting Provider General: WD/WN, vitals as above, NAD, sitting up in chair at bedside, pleasant, conversing appropriately. A+Ox3, euthymic affect. HEENT: Normocephalic, atraumatic. PERRL, conjunctivae normal, anicteric sclerae. External ear and nose normal, oropharynx normal. Respiratory: Normal respiratory effort, lungs clear to auscultation, no wheeze, rales, rhonchi. No accessory muscle use. Cardiovascular: Regular rate, rhythm, no murmur, normal peripheral pulses, no BLE edema. Vessels: No JVD. Abdomen/GI: Normal bowel sounds, soft, nontender, no hepatosplenomegaly. Extremities/Musculoskeletal: No cyanosis or clubbing, extremities motor strength intact, moves all extremities. Neurologic: EOMI, no focal deficits, CN's II-XI not formally tested but appear grossly intact bilaterally. Skin: No rashes, normal color, warm/dry. Principal Diagnosis Hypertensive urgency Dizziness Chronic tinnitus Discharge Data Allergies Allergy/AdvReac Type Severity Reaction Status Date / Time lisinopril Allergy Cough Verified 09/03/24 17:32 succinylcholine AdvReac It caused Verified 09/03/24 17:32 his brother to stop breathing Consultations 09/03/24 17:37 ED Decision to Admit Stat Procedures Performed Laboratory Results WBC 6.77 K/ul (4.8-10.8) 09/04/24 05:21 RBC 4.62 M/uL (4.70-6.10) L 09/04/24 05:21 Hgb 14.5 g/dl (14.0-18.0) 09/04/24 05:21 Hct 40.4 % (42.0-52.0) L 09/04/24 05:21 MCV 87.4 fL (80.0-100.0) 09/04/24 05:21 MCH 31.4 pg (25.0-34.0) 09/04/24 05:21 MCHC 35.9 g/dL (32.0-36.0) 09/04/24 05:21 RDW Std Deviation 39.7 fL (36.4-46.3) 09/04/24 05:21 RDW Coeff of Isidra 12.3 % (11.5-14.5) 09/04/24 05:21 Plt Count 220 K/uL (130-400) 09/04/24 05:21 MPV 9.8 fL (9.4-12.4) 09/04/24 05:21 Immature Gran % (Auto) 0.5 % 09/03/24 13:51 Neut % (Auto) 59.8 % 09/03/24 13:51 Lymph % (Auto) 27.4 % 09/03/24 13:51 [place] % (Auto) 7.6 % 09/03/24 13:51 Eos % (Auto) 4.0 % 09/03/24 13:51 Baso % (Auto) 0.7 % 09/03/24 13:51 Neut # (Auto) 3.63 K/uL (1.40-6.50) 09/03/24 13:51 Lymph # (Auto) 1.66 K/uL (1.20-3.40) 09/03/24 13:51 [place] # (Auto) 0.46 K/uL (0.11-0.59) 09/03/24 13:51 Eos # (Auto) 0.24 K/uL (0.00-0.50) 09/03/24 13:51 Baso # (Auto) 0.04 K/uL (0.00-0.20) 09/03/24 13:51 Immature Gran # (Auto) 0.03 K/uL (0.01-0.20) 09/03/24 13:51 PT 10.3 Seconds (9.0-12.0) 09/03/24 13:51 INR 0.9 (0.9-1.1) 09/03/24 13:51 APTT 27 Seconds (21-31) 09/03/24 13:51 PTT Ratio 1.0 09/03/24 13:51 Sodium 140 mmol/L (136-145) 09/04/24 05:21 Potassium 3.9 mmol/L (3.5-5.1) 09/04/24 07:31 Chloride 106 mmol/L (98-107) 09/04/24 05:21 Carbon Dioxide 29 mmol/L (21-32) 09/04/24 05:21 Anion Gap 5 (3-11) 09/04/24 05:21 BUN 15 mg/dl (6-23) 09/04/24 05:21 Creatinine 1.02 mg/dl (0.6-1.4) 09/04/24 05:21 Est Cr Clr Drug Dosing 94.5 ml/min 09/04/24 05:21 eGFR 84.14 09/04/24 05:21 BUN/Creatinine Ratio 14.7 (10-20) 09/04/24 05:21 Glucose 122 mg/dl (70-99(Fasting)) H 09/04/24 05:21 Calcium 8.8 mg/dl (8.6-10.3) 09/04/24 05:21 Phosphorus 2.9 mg/dl (2.5-4.9) 09/04/24 05:21 Magnesium 2.0 mg/dl (1.7-2.4) 09/04/24 05:21 Total Bilirubin 1.2 mg/dl (0.2-1.0) H 09/03/24 13:51 AST 25 U/L (13-39) 09/03/24 13:51 ALT 49 U/L (7-52) 09/03/24 13:51 Alkaline Phosphatase 68 U/L (34-104) 09/03/24 13:51 Troponin I High Sens 5.5 pg/ml (0-20) 09/03/24 13:51 Total Protein 6.7 gm/dl (6.0-8.3) 09/03/24 13:51 Albumin 4.2 gm/dl (3.4-5.0) 09/03/24 13:51 Globulin 2.5 gm/dl (2.5-4.0) 09/03/24 13:51 Albumin/Globulin Ratio 1.7 (0.9-2) 09/03/24 13:51 Impressions Chest X-Ray 09/03/24 13:40 XR chest 1V not portable CLINICAL HISTORY: Chest pain, nonspecific TECHNIQUE: Single frontal radiograph of the chest was obtained. Comparison: Comparison is made to chest radiograph 10/01/2021 FINDINGS: No lines and tubes are seen. The cardiomediastinal silhouette is normal. The lungs are clear. No evidence of pleural effusion or pneumothorax. IMPRESSION: No acute chest disease. ACT 112: Negative or not required by law. Electronically signed by: Miguelito Harris M.D. 09/03/2024 2:[address] 09/03/24 15:43 CT head/brain wo con CLINICAL HISTORY: COLLAZO/vertigo Technique: Contiguous axial CT images of the head were acquired from the base of the skull to the vertex without intravenous contrast administration. Images were viewed in brain, subdural and bone windows. Automated dose lowering techniques and/or adjustment according to patient size were utilized for this exam. Comparison: None available at the time of this dictation. Findings: The ventricles, basal cisterns, and cerebral sulci are normal. There is no acute intracranial hemorrhage or evidence of acute territorial infarction. Neither mass effect, shift of the midline structures, nor abnormal extra-axial fluid collections are shown. Soft tissue thickening seen in the sinuses most prominently in the left maxillary sinus. The orbits appear normal. There are no acute fractures of the calvaria or scalp swelling. Impression: No acute intracranial hemorrhage, no evidence of acute territorial infarction or other acute intracranial disease process. ACT 112: Negative or not required by law. Electronically signed by: Miguelito Harris M.D. 09/03/2024 4:08 PM Ordered Studies 09/03/24 15:43 CT head/brain wo con Stat Hospital Course (1) Hypertensive urgency: Plan Ramo Colon is a 59y/o M with PMHx significant for HTN, BPH, hyperlipidemia, GERD, arthritis, nonalcoholic fatty liver disease, lumbar radiculopathy, obesity, elevated LFTs, emphysema, anxiety, RICHELLE on CPAP, sensorineural hearing loss of both ears and chronic pain who presented to the ED for evaluation of high blood pressure with associated dizziness and N/V. Hypertensive Urgency: --CT head:No acute intracranial hemorrhage, no evidence of acute territorial infarction or other acute intracranial disease process. Losartan increased to 50 mg daily Continue hydrochlorothiazide 12.5 mg daily Advised to monitor blood pressure regularly at home Blood pressure improved Plan to be discharged home today Dizziness Likely secondary to uncontrolled hypertension Reports chronic tinnitus--unchanged Meclizine as needed States feeling well after blood pressure control, no symptoms currently Advised to follow-up with ENT as outpatient given chronic tinnitus TORIBIO: Monitor Hypokalemia: Replete and monitor Other Chronic Medical Conditions: BPH, GERD, hyperlipidemia, anxiety, emphysema and chronic pain Can continue home medications as able Continue CPAP HS for RICHELLE. DVT Px: SQ Lovenox Code Status: FULL CODE Disposition: Home Total Time Total Time Spent Total Time Spent (In Minutes): 38 minutes Discharge Plan Discharge Items Patient Disposition: Home - Self-Care Reason For Visit: ELEVATED BP, VERTIGO SYMPTOMS Discharge Diagnosis: Hypertensive urgency Dizziness Chronic tinnitus Activity: Per Instructions section Exercise/Sports: Gradually increase as tolerated Non-emergency contact: Primary Care Provider and Specialist Call non-emergency contact if: you have any medication questions, your symptoms worsen, your pain is concerning for you and you have a fever Follow-up/Referrals: Frankie Ayala CRNP [Primary Care Provider] - Diet: Heart Healthy Addtl Attending Provider Instructions: Follow-up with your primary care physician Gayatri ANGELA in 1 week Consider following with your ENT for further evaluation of your dizziness/tinnitus as recommended -- Monitor your blood pressure regularly as advised. Discuss with your physician for further adjustment of medications as needed. Seek immediate medical attention if your symptoms reoccur or worsen Please take all medications as instructed on discharge list below. Please call if you have any questions or problems. You can reach a [facility] hospitalist on duty at [facility] 24 hours a day by calling [phone] Pending Studies at Discharge: No Stand-Alone Forms: My [facility], Smoking Cessation Medications and DC Order Prescriptions: New losartan 50 mg Tablet 50 mg PO QAM Qty: 30 1RF meclizine 12.5 mg Tablet 12.5 mg PO Q8H PRN (Reason: dizziness) Qty: 30 0RF Continued hydrocodone-acetaminophen 7.5-325 mg tablet 1 tab PO BID PRN (Reason: Severe Pain (Scale Score 7-10)) lidocaine 5 % adhesive patch,medicated 1 patch topical DAILY PRN (Reason: Pain) Rx Instructions: leave on most painful area for up to 12 hrs esomeprazole magnesium [Nexium] 40 mg capsule,delayed release(DR/EC) 40 mg PO QAM atorvastatin 20 mg tablet 20 mg PO QAM duloxetine [Cymbalta] 60 mg capsule,delayed release(DR/EC) 60 mg PO QAM hydrochlorothiazide 12.5 mg capsule 12.5 mg PO QAM tamsulosin 0.4 mg capsule 0.4 mg PO QAM Combivent Respimat 20-100 mcg/actuation mist 1 puff INHALATION BID acetaminophen [Tylenol Extra Strength] 500 mg Tablet 1,000 mg PO TID PRN (Reason: Pain) Discontinued losartan 25 mg tablet 25 mg PO QAM Hold Instructions: Hold until blood pressure at home is greater than 140 or your PCP tells you to resume Discharge Orders: Discharge Order (Routine); Ordered 09/04/24 Ordered By: Tee Cruz Admission Data Admit Date/Time: 09/03/24 17:58 Attending Provider: Tee Cruz Admit Provider: J Luis Vernon Primary Care Provider: Frankie Ayala Other Providers: J Luis Vernon; [facility]
[2024-09-04 11:53] VITALS: BP 142/92; PULSE 63
== END 2024-09-04 12:21 | disposition home or self-care (01) ==
LOC: ED 13:30 → 2N 13:30 → SUATTDRO 17:58 → 2N 21:07